=== PATIENT | female | born 1940 | race American Indian/Alaskan Native ===

== ENCOUNTER → 2016-05-25 | Outpatient (CLI) | payer MEDICARE, OTHER ==
--- NOTE | 2016-05-25 16:37 | US ---
EXAMINATION: Carotid US with parrish scale and duplex imaging. HISTORY: Peripheral vascular disease FINDINGS: Ultrasound examination of bilateral cervical carotid arteries was performed using parrish scale and dup niya imaging. There is moderate scattered atheromatous plaque within the carotid arteries bilaterall y by grayscale imaging. This is most prominent near the bulbs, right greater than left. Antegrade f low is noted within the vertebral arteries. These are the peak velocities in cm per second (systole), right and left respectively, by a comma: CCA (common carotid artery) - 89, 98 ICA (internal carotid artery) - 118, 61 ECA (External carotid artery) - 109, 82 ICA/CCA systolic ratio Right - 1.3 Left - 0.8 IMPRESSION: 1. Scattered atheromatous plaque within the carotid arteries bilaterally without significant velocit ies to suggest greater than 50% stenosis within the internal carotid arteries. 2. The greatest area stenosis appears be within the right bulb.
--- NOTE | 2016-05-25 17:04 | US ---
EXAMINATION: RAVINDER HISTORY: Peripheral vascular disease COMPARISON: None TECHNIQUE: Pressures obtained in the brachial arteries and within the posterior tibial and dorsalis pedis arteries bilaterally. FINDINGS/IMPRESSION: 1. The right RAVINDER is between 0.63 and 0.5. 2. The left RAVINDER is 0.89.
--- NOTE | 2016-05-26 09:45 | MR ---
EXAMINATION: MRI lumbar spine HISTORY: Pain COMPARISON: None TECHNIQUE: Multiplanar and multisequence images obtained through the lumbar spine without contrast. FINDINGS: The lumbar spinal alignment appears normal. The vertebral body heights and disc spaces bekah ear well-maintained. There is no abnormal bone marrow signal. The visualized retroperitoneal structu res appear normal. The distal spinal cord is normal and the conus terminates at L2. The SI joints ar e symmetric. T12-L1: Unremarkable. L1-L2: Unremarkable. L2-L3: Minimal diffuse disc bulge without significant spinal canal or neural foraminal stenosis. L3-L4: Tiny diffuse disc bulge with mild facet and ligamentum flavum hypertrophy without significant spinal canal stenosis. Mild bilateral foraminal stenosis. L4-L5: Small diffuse disc bulge mild facet and ligamentum flavum hypertrophy resulting in mild spina l canal stenosis. Mild bilateral neural foraminal stenosis. L5-S1: Small diffuse disc bulge with an annular tear without significant spinal canal stenosis. Mild bilateral neural foraminal stenosis. IMPRESSION: 1. Mild multilevel degenerative disc disease noted within the lumbar spine with individual details a georgina.
--- NOTE | 2016-06-11 22:30 | ECHO ---
The echocardiogram report can be seen in this patient's EMR in the Reports section. IVET
== END ==
LOC: MW.US 13:00
PROVIDERS: ATTEND Internal Medicine
DX: I73.9 Peripheral vascular disease, unspecified (principal); M54.9 Dorsalgia, unspecified; M51.36 Other intervertebral disc degeneration, lumbar region
CPT/HCPCS: 72148; 72148-26; 93306; 93880; 93880-26; 93922; 93922-26

== ENCOUNTER → 2016-06-03 | Outpatient (CLI) | payer MEDICARE, OTHER ==
[2016-06-03 15:16] LABS: CHLORIDE,CL 104 mmol/L (98-110); SODIUM,NA 143 mmol/L (136-146)
== END ==
LOC: MW.CHIM 13:48
PROVIDERS: ATTEND Internal Medicine
DX: I73.9 Peripheral vascular disease, unspecified (principal); I10 Essential (primary) hypertension; J43.9 Emphysema, unspecified; E78.00 Pure hypercholesterolemia, unspecified; G62.9 Polyneuropathy, unspecified; F17.210 Nicotine dependence, cigarettes, uncomplicated; Z71.6 Tobacco abuse counseling
CPT/HCPCS: 36415; 80053; 83880; 99214; 99407

== ENCOUNTER → 2016-06-22 | Outpatient (CLI) | payer MEDICARE, OTHER ==
[~2016-06-22] MED LIST: Iopamidol 755 Mg/ML 100 ML Bottle IVPUSH STA
--- NOTE | 2016-06-22 14:12 | CT ---
EXAMINATION: CT aorta with runoff HISTORY: Peripheral vascular disease COMPARISON: None TECHNIQUE: Axial CT images obtained from the diaphragm to the feet following the administration of 7 5 mL of Isovue-370 left antecubital fossa. Coronal and sagittal reconstructions obtained. FINDINGS: There is scarring within the lung bases. No pleural effusion. The liver is mildly heterogeneous of a tiny focus of hyperenhancement within the inferior right hepa tic lobe, measuring 3 mm. Given the size this likely represents an atypical hemangioma. The spleen, adrenal glands, and pancreas appear grossly normal. The kidneys enhance symmetrically without eviden ce of obstructive uropathy. The visualized large and small bowel are normal in caliber without evide nce of obstruction. The urinary bladder is mostly decompressed. No pelvic or retroperitoneal lymphad enopathy. Atheromatous disease is noted within the aorta. There is moderate stenosis of the celiac axis. The r ight hepatic artery originates from the SMA. Abdomen atheromatous disease is noted within the renal arteries without significant stenosis. 2 left renal arteries are noted. No significant ectasia of t he aorta. Atheromatous disease noted within the common iliac arteries bilaterally with mild underlying stenosi s. The internal iliac arteries are patent. The processes is noted within the external iliac arteries bilaterally with long segment areas of mild to moderate underlying stenosis. There is complete occlusion of the distal right superficial femoral artery with reconstitution of th e upper popliteal artery. There is multifocal areas of moderate to severe stenosis within the left s uperficial femoral artery with high-grade stenosis distally. There is also a moderate segment area o f moderate to severe stenosis within the upper left popliteal artery. There is a three-vessel runoff bilaterally. Dorsalis pedis arteries are visualized bilaterally. No suspicious osseous abnormalities. IMPRESSION: 1. Multifocal areas of advanced atheromatous disease. There is occlusion of the right femoral to esteban perficial femoral artery with reconstitution at the popliteal artery. 2. Multifocal areas of moderate to severe stenosis is noted within the left superficial femoral and popliteal arteries. Moderate stenosis is noted within the right popliteal artery. 3. There is a three-vessel runoff within the lower extremities bilaterally.
== END ==
LOC: MW.DI 09:35
PROVIDERS: ATTEND Internal Medicine
DX: I73.9 Peripheral vascular disease, unspecified (principal); I77.1 Stricture of artery
CPT/HCPCS: 75635; Q9967

== ENCOUNTER → 2016-06-23 | Outpatient (CLI) | payer MEDICARE, OTHER | LOC: MW.CHIM 08:00 | PROVIDERS: ATTEND Internal Medicine | DX: E78.5 Hyperlipidemia, unspecified (principal); I73.9 Peripheral vascular disease, unspecified; J44.9 Chronic obstructive pulmonary disease, unspecified; F17.211 Nicotine dependence, cigarettes, in remission; Z71.6 Tobacco abuse counseling | CPT/HCPCS: 99214; 99407 ==

== ENCOUNTER → 2016-08-12 | Outpatient (CLI) | payer MEDICARE, OTHER ==
--- NOTE | 2016-08-12 15:03 | XA ---
Exam Date: 08/12/16 Patient's Age: 76 HEIGHT: 62.0 in WEIGHT: 100.0 lbs INDICATIONS: Osteoporotic, Post Menopausal FRACTURES: Adult Fractures Only TREATMENTS: ASSESSMENT: The BMD measured at Femur Total Mean is 0.471 g/cm2 with a T-score of -4.3. This patient is considered osteoporotic according to World Health Organization ( WHO) criteria. Fracture risk is high. Pharmacological treatment, if not already prescribed, should be started. A followup bone density test is recommended in one year to monitor response to therapy. The BMD measured at Femur Troch Mean is 0.336 g/cm2 with a T-score of -4.5 is severely low. Fracture risk is high. Treatment, if not already being done, should be started. A followup DXA test is recommended in one year to monitor response to therapy. RESULTS: Site Region Age Classification T-Score BMD AP Spine L1-L4 78.1 Osteoporosis -3.3 0.787 g/cm2 Dual Femur Neck Mean 78.1 Osteoporosis -3.9 0.492 g/cm2 Dual Femur Troch Mean 78.1 N/A -4.5 0.336 g/cm2 Dual Femur Total Mean 78.1 Osteoporosis -4.3 0.471 g/cm2 World Health Organization - Criteria for post-menopausal, women: Normal: T-Score at or above -1 SD Osteopenia: T-Score between -1 and -2.5 SD Osteoporosis: T-Score at or below -2.5 SD RECOMMENDATION: Pharmacologic treatment recommendations & Initiate pharmacologic treatment: - In those with hip or vertebral (clinical or asymptomatic) fractures - In those with T -scores <-2.5 at the femoral neck, total hip, or lumbar spine by DXA - In postmenopausal women and men age 50 and older with low bone mass (T-score between -1.0 and -2.5, osteopenia) at the femoral neck, total hip, or lumbar spine by DXA and a 10-year hip fracture probability >3 % or a 10-year major osteoporosis-related fracture probability >20% based on the [place]-adapted WHO absolute fracture risk model (Fracture Risk Algorithm (FRAX); www. NOF.org and www.shef.ac.uk/FRAX) FOLLOW UP: People with diagnosed cases of osteoporosis or at high risk for fracture should have regular bone mineral density tests. For patients eligible for Medicare, routine testing is allowed once every 2 years. The testing frequency can be increased to 1 year for patients who have rapidly progressing disease, those who are reviewing or discontinuing medial therapy to restore bone mass, or have additional risk factors. People with diagnosed cases of osteoporosis or osteopenia should be regularly tested for bone mineral density. For patient eligible for Medicare, routine testing is allowed once every 2 years. The testing frequency can be increased to 1 year for patients who have rapidly progressing disease, or for those who are receiving medial therapy to restore bone mass. [facility] -- MARTINA Coates [phone] - FAX: [phone] IVET
== END ==
LOC: MW.DI 09:58
PROVIDERS: ATTEND Family Medicine
DX: M81.0 Age-related osteoporosis without current pathological fracture (principal)
CPT/HCPCS: 77080; 77080-26

== ENCOUNTER 2017-09-08 06:43 | Day surgery (SDC) | payer MEDICARE, OTHER ==
[2017-09-08] MEDS ORDERED: Lactated Ringers 1,000 ML IV SCH ×2 (07:00→08:30)
--- NOTE | 2017-09-08 07:12 | PCM.PREANE ---
Preanesthetic Assessment - Anesthesia/Transfusion/Family Hx Anesthesia History: Prior Anesthesia Without Reaction Other Type of Anesthesia Reaction Comment: "slow coming out of anesthesia" Family History of Anesthesia Reaction: No Transfusion History: Prior Transfusion Without Reaction Intubation History: Unknown - Review of Systems General: No Symptoms Pulmonary: No Symptoms Cardiovascular: No Symptoms Gastrointestinal: Other (h/o multiple colon polyps. change in bowel habits) Neurological: No Symptoms Other: Reports: None - Physical Assessment Height: 1.57 m Weight: 53.524 kg ASA Class: 3 Mental Status: Alert & Oriented x3 Airway Class: Mallampati = 2 Dentition: Reports: Dentures (upper) Thyro-Mental Finger Breadths: 3 Mouth Opening Finger Breadths: 2 ROM/Head Extension: Limited/Partial Lungs: Normal Respiratory Effort, Decreased Breath Sounds, Crackles Cardiovascular: Regular Rate, Regular Rhythm - Allergies Allergies/Adverse Reactions: Allergies Allergy/AdvReac Type Severity Reaction Status Date / Time alendronate sodium Allergy muscle Verified 09/06/17 09:12 cramps & leg edema codeine Allergy Hives/N&V Verified 09/06/17 09:12 Iodine and Iodide Containing Allergy Burning Verified 09/06/17 09:12 Produc theophylline anhydrous Allergy Shaking Verified 09/06/17 09:12 [From Robert-Dur] tussin chest congestion syrup Allergy Shaking Uncoded 09/06/17 09:12 - Blood Blood Available: No - Anesthesia Plan Pre-Op Medication Ordered: None - Acknowledgements Anesthesia Type Planned: MAC Pt an Appropriate Candidate for the Planned Anesthesia: Yes Alternatives and Risks of Anesthesia Discussed w Pt/Guardian: Yes Pt/Guardian Understands and Agrees with Anesthesia Plan: Yes PreAnesthesia Questionnaire HEENT History: Reports: Cataract, Epistaxis, Glaucoma Other HEENT History: top denture Cardiovascular History: Reports: High Cholesterol, Hypertension, Other (See Below) (PVD, s/p stents x2 in left leg three years ago (not working per patient) , also some stenosis of carotids with no need for surgery for now) Other Cardiovascular History: palpatations Respiratory History: Reports: COPD, Other (See Below) Other Respiratory History: emphysema, oxygen PRN, Gastrointestinal History: Reports: Colon Polyp, Diverticulosis, GERD, Hiatal Hernia, Other (See Below) Other Gastrointestinal History: hx lam esophagus, multipe colonoscopies with polypectomies -last one 3 years ago Genitourinary History: Reports: Pyelonephritis, UTI, Recurrent, Other (See Below ) Other Genitourinary History: hx kidney infections 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: 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: Musculoskeletal History: Reports: Arthritis, Back Pain, Chronic, Fracture, Osteoporosis Other Musculoskeletal History: hx fx jaw and ankles Neurological History: Reports: Neuropathy, Peripheral, Other (See Below) Other Neuro History: states, 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, has resolved Psychiatric History: Reports: Anxiety, Depression Endocrine/Metabolic History: Reports: Osteoporosis, Other (See Below) (history of thyroid problems- was on medications for a while, ok since) Hematologic History: Reports: Blood Transfusion(s) Immunologic History: Reports: None Oncologic (Cancer) History: Reports: Uterine Dermatologic History: Reports: None - Infectious Disease History Infectious Disease History: Reports: Chicken Pox - Past Surgical History Head Surgeries/Procedures: Reports: None HEENT Surgical History: Reports: Cataract Surgery, Tonsillectomy, Other (See Below) Other HEENT Surgeries/Procedures: hx repair of fx jaw GI Surgical History: Reports: Appendectomy, Colonoscopy (multiple), EGD Female Surgical History: Reports: Hysterectomy Other Female Surgeries/Procedures: hx hysterectomy due to cancer Neurological Surgical History: Reports: Other (See Below) Other Neurological Surgeries/Procedures: hx stents to left leg Oncologic Surgical History: - SUBSTANCE USE Smoking Status *Q: Former Smoker Recreational Drug Use History: No - HOME MEDS Home Medications: Home Meds Aspirin [[place] Aspirin] 81 mg PO DAILY 03/26/15 [History] Brimonidine Tartrate [Brimonidine Tartrate 0.2% Oph Soln] 1 drop EYERT BID [History] Cholecalciferol (Vitamin D3) [Vitamin D3] 400 units PO DAILY 09/06/17 [History] Colon Cleanser 1 tab PO ASDIRECTED 09/06/17 [History] Furosemide 20 mg PO ASDIRECTED PRN 09/06/17 [History] L.acidoph,Paracasei, B.lactis [Probiotic] 1 tab PO ASDIRECTED 09/06/17 [History] Levalbuterol HCl 1 inh NEB ASDIRECTED PRN 09/06/17 [History] - CURRENT (IN HOUSE) MEDS Current Meds: Current Medications Lactated Ringer's (Ringers, Lactated) 1,000 mls @ 125 mls/hr IV ASDIRECTED TERRIE
[2017-09-08] MEDS ORDERED: Propofol 200 MG/20 ML SDV ONE (07:30)
[2017-09-08] MEDS ORDERED: fentaNYL 100 MCG/2 ML SDV ONE (07:30)
[2017-09-08] MEDS ORDERED: Midazolam 1 MG/ML 2 ML SDV ONE (07:30)
--- NOTE | 2017-09-08 08:23 | PCM.OPNOTE ---
- General Post-Op/Procedure Note Date of Surgery/Procedure: 09/08/17 Operative Procedure(s): Colonoscopy with cold rectal polypectomy 2 Pre Op Diagnosis: Change in bowel habits. Decreased stool caliber. Personal history of colon polyps. Post-Op Diagnosis: Rectal polyps 2. Sigmoid diverticulosis. Anesthesia Technique: MAC (ASA III) Primary Surgeon: Ethan Bonner Condition: Good Free Text/Narrative:: DICTATION 064081 CPT CODE 40209
--- NOTE | 2017-09-08 08:34 | OR ---
SURGEON: Ethan Bonner M.D. DATE OF PROCEDURE: 09/08/2017 OPERATIONS PERFORMED: Colonoscopy with colorectal polypectomy. ANESTHESIA: MAC. [place] [employer] CLASSIFICATION: III. PREOPERATIVE DIAGNOSES: 1. Change in bowel habits. 2. Decreased caliber of stool. POSTOPERATIVE DIAGNOSES: 1. Rectal polyp x2. 2. Sigmoid diverticulosis. DESCRIPTION OF PROCEDURE: The patient was taken to the endoscopy room and positioned on the endoscopy table in the left lateral decubitus position. Time-out was called for appropriate identification of the patient and procedure. Monitored anesthesia care was provided. The colonoscope was inserted into the rectum and advanced with minimal difficulty to the cecum, where the colonoscope was retroflexed to visualize the ascending colon from below. The colonoscope was then straightened and slowly withdrawn. Cecum, ascending colon, hepatic flexure, transverse colon, splenic flexure, and descending colon showed no tumors, polyps, diverticula, or angiodysplastic changes. Sigmoid colon demonstrates moderate diverticular change. No stricture or spasm was noted. No polyps were encountered in the sigmoid colon, and there were no acute inflammatory changes. The colonoscope was then withdrawn to the rectum where two small polyps were identified. These were removed with the cold biopsy forceps and sent as one specimen. The colonoscope was retroflexed to visualize the anal orifice from the above. No tumors or polyps were seen, and there were no significant acute hemorrhoidal changes. The colonoscope was then straightened, the rectum aspirated, and the colonoscope removed. The patient tolerated the procedure well and was taken to the recovery room in stable condition. SHONNA / DOMITILA /[id number]
[2017-09-08 09:27] VITALS: BP 137/55
== END 2017-09-08 09:25 | disposition home or self-care (01) ==
LOC: MW.SDS 06:43
PROVIDERS: ATTEND Surgery
DX: R19.4 Change in bowel habit (principal); K62.1 Rectal polyp; K57.30 Diverticulosis of large intestine without perforation or abscess without bleeding; I11.0 Hypertensive heart disease with heart failure; I50.30 Unspecified diastolic (congestive) heart failure; E78.00 Pure hypercholesterolemia, unspecified; J43.9 Emphysema, unspecified; F41.9 Anxiety disorder, unspecified; F32.9 Major depressive disorder, single episode, unspecified; Z86.010 Personal history of colon polyps; Z87.891 Personal history of nicotine dependence; Z79.82 Long term (current) use of aspirin; Z79.899 Other long term (current) drug therapy; Z80.0 Family history of malignant neoplasm of digestive organs
CPT/HCPCS: 45380; J2250; J3010; J7120; J2704

== ENCOUNTER 2018-04-26 10:38 | Day surgery (SDC) | payer MEDICARE, OTHER ==
[~2018-04-26 10:38] MED LIST changes: -Iopamidol 755 Mg/ML 100 ML Bottle IVPUSH STA; +Lactated Ringers 1,000 ML IV SCH
--- NOTE | 2018-04-26 11:18 | PCM.PREANE ---
Preanesthetic Assessment - Anesthesia/Transfusion/Family Hx Anesthesia History: Prior Anesthesia Reaction Other Type of Anesthesia Reaction Comment: "slow coming out of anesthesia" Family History of Anesthesia Reaction: No Transfusion History: Prior Transfusion Without Reaction Intubation History: Unknown - Review of Systems General: No Symptoms Pulmonary: Shortness of Breath Cardiovascular: No Symptoms Gastrointestinal: Difficulty Swallowing Neurological: No Symptoms Other: Reports: None - Physical Assessment Height: 1.57 m Weight: 53.977 kg ASA Class: 3 Mental Status: Alert & Oriented x3 Airway Class: Mallampati = 2 Dentition: Reports: Dentures (upper) Thyro-Mental Finger Breadths: 3 Mouth Opening Finger Breadths: 2 ROM/Head Extension: Limited/Partial Lungs: Clear to Auscultation, Normal Respiratory Effort Cardiovascular: Regular Rate, Regular Rhythm - Allergies Allergies/Adverse Reactions: Allergies Allergy/AdvReac Type Severity Reaction Status Date / Time alendronate sodium Allergy muscle Verified 04/21/18 12:06 cramps & leg edema codeine Allergy Hives/N&V Verified 04/21/18 12:06 Iodine and Iodide Containing Allergy Burning Verified 04/21/18 12:06 Produc theophylline anhydrous Allergy Shaking Verified 04/21/18 12:06 [From Robert-Dur] tussin chest congestion syrup Allergy Shaking Uncoded 04/21/18 12:06 - Blood Blood Available: No - Anesthesia Plan Pre-Op Medication Ordered: None - Acknowledgements Anesthesia Type Planned: MAC Pt an Appropriate Candidate for the Planned Anesthesia: Yes Alternatives and Risks of Anesthesia Discussed w Pt/Guardian: Yes Pt/Guardian Understands and Agrees with Anesthesia Plan: Yes PreAnesthesia Questionnaire HEENT History: Reports: Cataract, Glaucoma, Other (See Below) Other HEENT History: uses reading glasses, has upper denture Cardiovascular History: Reports: Cardiomyopathy (NYHA class I diastolic CHF), High Cholesterol, Hypertension, Other (See Below) (PVD, s/p stents x2 in left leg three years ago (not working per patient), also some stenosis of carotids with no need for surgery for now) Other Cardiovascular History: palpatations Respiratory History: Reports: COPD, SOB (can't walk 2 blocks without SOB) Other Respiratory History: emphysema, oxygen PRN, Gastrointestinal History: Reports: Colon Polyp, GERD, Hiatal Hernia, Other (See Below) (dysphagia) Other Gastrointestinal History: hx of Barretts Esophagus and Esophageal stricture Genitourinary History: Reports: Urinary Incontinence Other Genitourinary History: hx kidney infections 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: Musculoskeletal History: Reports: Arthritis, Back Pain, Chronic, Fracture, Neck Pain, Chronic, Osteoporosis Other Musculoskeletal History: hx of fx ankle, wrist and jaw Neurological History: Reports: Neuropathy, Peripheral, Other (See Below) Other Neuro History: hx of "nerve stroke", 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, hx of motion sickness Psychiatric History: Reports: Anxiety Endocrine/Metabolic History: Reports: Osteoporosis Hematologic History: Reports: Blood Transfusion(s) Immunologic History: Reports: None Oncologic (Cancer) History: Reports: Uterine Dermatologic History: Reports: Eczema - Infectious Disease History Infectious Disease History: Reports: Chicken Pox - Past Surgical History Head Surgeries/Procedures: Reports: None HEENT Surgical History: Reports: Cataract Surgery, Tonsillectomy, Visual, Other (See Below) Other HEENT Surgeries/Procedures: hx of surgery for glaucoma right eye, hx of surgery to repair fx jaw (still has some facial numbness on left side) GI Surgical History: Reports: Appendectomy, Colonoscopy, EGD Female Surgical History: Reports: Hysterectomy Musculoskeletal Surgical History: Reports: None Oncologic Surgical History: Reports: Other (See Below) Other Oncologic Surgeries/Procedures: Hysterectomy - SUBSTANCE USE Smoking Status *Q: Former Smoker Tobacco Use Within Last Twelve Months: No Recreational Drug Use History: No - HOME MEDS Home Medications: Home Meds Aspirin [[place] Aspirin EC] 81 mg PO DAILY 03/26/15 [History] Brimonidine Tartrate [Brimonidine Tartrate 0.2% Ophth Soln] 1 drop EYERT BID [History] Cholecalciferol (Vitamin D3) [Vitamin D3] 800 units PO DAILY 09/06/17 [History] Colon Cleanser 1 tab PO ASDIRECTED 09/06/17 [History] Furosemide 20 mg PO ASDIRECTED PRN 09/06/17 [History] L.acidoph,Paracasei, B.lactis [Probiotic] 1 tab PO ASDIRECTED 09/06/17 [History] Levalbuterol HCl 1 inh NEB ASDIRECTED PRN 09/06/17 [History] Grape Seed Extract [Grape Seed] 1 cap PO DAILY 04/21/18 [History] Red Yeast Rice 600 mg PO DAILY 04/21/18 [History] - CURRENT (IN HOUSE) MEDS Current Meds: Current Medications Lactated Ringer's (Ringers, Lactated) 1,000 mls @ 125 mls/hr IV ASDIRECTED TERRIE
[2018-04-26] MEDS ORDERED: Propofol 200 MG/20 ML SDV ONE (11:51)
--- NOTE | 2018-04-26 12:10 | PCM.OPNOTE ---
- General Post-Op/Procedure Note Date of Surgery/Procedure: 04/26/18 Operative Procedure(s): Esophagogastroduodenoscopy with gastric and esophageal biopsies Pre Op Diagnosis: Progressive dysphagia. History of Chambers's esophagus and esophageal stricture. Post-Op Diagnosis: Mild to moderate gastritis. Moderate distal esophagitis with hiatal hernia. No evidence of stricture. Anesthesia Technique: MAC (ASA III) Primary Surgeon: Ethan Bonner Condition: Good Free Text/Narrative:: DICTATION 504231 CPT CODE 51812
[2018-04-26] MEDS ORDERED: Lactated Ringers 1,000 ML IV SCH (12:15)
--- NOTE | 2018-04-26 12:47 | PCM48HPAN ---
Post Anesthesia Note - EVALUATION WITHIN 48HRS OF ANESTHETIC Vital Signs in Normal Range: Yes Patient Participated in Evaluation: Yes Respiratory Function Stable: Yes Airway Patent: Yes Cardiovascular Function Stable: Yes Hydration Status Stable: Yes Pain Control Satisfactory: Yes Nausea and Vomiting Control Satisfactory: Yes Mental Status Recovered: Yes Resp Rate: 18 - COMMENTS/OBSERVATIONS Free Text/Narrative:: no anesthesia problems
[2018-04-26 12:59] VITALS: BP 176/73
--- NOTE | 2018-04-27 08:59 | OR ---
SURGEON: Ethan Bonner M.D. DATE OF PROCEDURE: 04/26/2018 OPERATIONS PERFORMED: Esophagogastroduodenoscopy with gastric and esophageal biopsies. ANESTHESIA: MAC. ASA CLASSIFICATION: III. PREOPERATIVE DIAGNOSES: 1. Progressive difficulty swallowing solid foods. 2. Previous history of esophageal stricture. 3. History of Chambers's esophagus. POSTOPERATIVE DIAGNOSES: 1. Moderate gastritis. 2. Esophagitis with hiatal hernia. DESCRIPTION OF PROCEDURE: The patient was taken to the endoscopy room and positioned on the endoscopy table in the supine position. Time-out was called for appropriate identification of the patient and procedure. Monitored anesthesia care was provided. The bite block was placed between the patient's teeth. The gastroscope was inserted through the bite block into the oropharynx and advanced without difficulty through the esophagus and stomach into the duodenum, where examination was now carried out in a retrograde fashion. The duodenum shows no acute inflammatory changes or ulcerations. The stomach does show mild-to- moderate gastritis. Antral biopsies were obtained to rule out Helicobacter pylori. The gastroscope was retroflexed to visualize the proximal stomach. No tumors or polyps were seen, and there were no lesions noted in the proximal stomach. The gastroscope was then straightened and slowly withdrawn. The greater and lesser curvatures were very well visualized. No tumors or polyps were seen, and there were no ulcerations noted in the proximal stomach. As the scope was withdrawn through the GE junction, the patient was noted to have a small hiatal hernia. There are also chronic inflammatory changes and separate biopsies of the distal esophagus were obtained. Remainder of the esophagus shows healthy appearing mucosa. I did not see any evidence of Zenker's diverticulum. The esophagus itself demonstrates pretty good contractility. I did not see any significant tertiary contractions. The vocal cords were very briefly visualized as the scope was withdrawn. Vocal cords were noted to move symmetrically, and no lesions were identified on the vocal cords. The gastroscope was then removed with the patient having tolerated the procedure well. She was now taken to recovery room in satisfactory condition. SHONNA RAMESH /[id number]
== END 2018-04-26 12:55 | disposition home or self-care (01) ==
LOC: MW.SDS 10:38
PROVIDERS: ATTEND Surgery
DX: K20.9 Esophagitis, unspecified (principal); K22.70 Barrett's esophagus without dysplasia; K29.50 Unspecified chronic gastritis without bleeding; K44.9 Diaphragmatic hernia without obstruction or gangrene; I11.0 Hypertensive heart disease with heart failure; I50.30 Unspecified diastolic (congestive) heart failure; J43.9 Emphysema, unspecified; E78.00 Pure hypercholesterolemia, unspecified; F41.9 Anxiety disorder, unspecified; K21.9 Gastro-esophageal reflux disease without esophagitis; Z87.891 Personal history of nicotine dependence; Z79.82 Long term (current) use of aspirin; Z79.899 Other long term (current) drug therapy; Z88.8 Allergy status to other drugs, medicaments and biological substances; Z88.5 Allergy status to narcotic agent
CPT/HCPCS: 43239; J2704; J7120

== ENCOUNTER 2019-10-27 12:14 | Observation (INO) | payer MEDICARE, OTHER ==
--- NOTE | 2019-10-27 12:24 | EDM.PDOC ---
ED HPI GENERAL MEDICAL PROBLEM - General Chief Complaint: General Stated Complaint: COVID TEST Time Seen by Provider: 10/27/19 12:17 Source of Information: Reports: Patient History Limitations: Reports: No Limitations - History of Present Illness INITIAL COMMENTS - FREE TEXT/NARRATIVE: 79-year-old female with history of COPD on oxygen presents with diffuse chest discomfort for 2 days. She states it feels heavy. Associated with dry cough, fever of 100.8, chills, malaise, throat irritation. She denies nausea, vomiting, abdominal pain. She has taken been cough drops and Robitussin with no relief. ROS: A 10-point review of systems, other than pertinent positives and negatives as stated per HPI, is otherwise negative Past medical history: No additional pertinent history Past Surgical history: No additional pertinent history Social history: No additional pertinent history Family history: No additional pertinent history PHYSICAL EXAM General: AOx4, GCS = 15, No distress HEENT: dry mucous membrane Neck: supple, no meningismus, no Kernig or Brudzinski Cardiac: S1S2 RRR Respiratory: deminished with mild exp wheezing Abdomen: Soft, nontender, no rebound or guarding, nondistended, no pulsatile mass. Back: nontender Musculoskeletal: NVI distally, no deformity Neuro: No focal deficits, CN 2 - 12 WNL. chronic pain Pain Score (Numeric/FACES): 5 - Related Data Allergies Allergy/AdvReac Type Severity Reaction Status Date / Time alendronate sodium Allergy muscle Verified 10/27/19 12:24 cramps & leg edema codeine Allergy Hives/N&V Verified 10/27/19 12:24 Iodine and Iodide Containing Allergy Burning Verified 10/27/19 12:24 Produc theophylline anhydrous Allergy Shaking Verified 10/27/19 12:24 [From [facility]] tussin chest congestion syrup Allergy Shaking Uncoded 10/27/19 12:24 Home Meds: Home Meds Aspirin [[place] Aspirin EC] 81 mg PO DAILY 03/26/15 [History] Brimonidine Tartrate [Brimonidine Tartrate 0.2% Ophth Soln] 1 drop EYERT BID 03/26/15 [History] Cholecalciferol (Vitamin D3) [Vitamin D3] 800 units PO DAILY 09/06/17 [History] Colon Cleanser 1 tab PO ASDIRECTED 09/06/17 [History] Furosemide 20 mg PO ASDIRECTED PRN 09/06/17 [History] L.acidoph,Paracasei, B.lactis [Probiotic] 1 tab PO ASDIRECTED 09/06/17 [History] Levalbuterol HCl 1 inh NEB ASDIRECTED PRN 09/06/17 [History] Grape Seed Extract [Grape Seed] 1 cap PO DAILY 04/21/18 [History] Red Yeast Rice 600 mg PO DAILY 04/21/18 [History] Past Medical History HEENT History: Reports: Cataract, Glaucoma, Other (See Below) Other HEENT History: uses reading glasses, has upper denture Cardiovascular History: Reports: Cardiomyopathy, High Cholesterol, Hypertension, Other (See Below) Other Cardiovascular History: palpatations Respiratory History: Reports: COPD, SOB Other Respiratory History: emphysema, oxygen PRN, Gastrointestinal History: Reports: Colon Polyp, GERD, Hiatal Hernia, Other (See Below) Other Gastrointestinal History: hx of Barretts Esophagus and Esophageal stricture Genitourinary History: Reports: Urinary Incontinence Other Genitourinary History: hx kidney infections 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: Musculoskeletal History: Reports: Arthritis, Back Pain, Chronic, Fracture, Neck Pain, Chronic, Osteoporosis Other Musculoskeletal History: hx of fx ankle, wrist and jaw Neurological History: Reports: Neuropathy, Peripheral, Other (See Below) Other Neuro History: hx of "nerve stroke", 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, hx of motion sickness Psychiatric History: Reports: Anxiety Endocrine/Metabolic History: Reports: Osteoporosis Hematologic History: Reports: Blood Transfusion(s) Immunologic History: Reports: None Oncologic (Cancer) History: Reports: Uterine Dermatologic History: Reports: Eczema - Infectious Disease History Infectious Disease History: Reports: Chicken Pox - Past Surgical History Head Surgeries/Procedures: Reports: None HEENT Surgical History: Reports: Cataract Surgery, Tonsillectomy, Visual, Other (See Below) Other HEENT Surgeries/Procedures: hx of surgery for glaucoma right eye, hx of surgery to repair fx jaw (still has some facial numbness on left side) GI Surgical History: Reports: Appendectomy, Colonoscopy, EGD Female Surgical History: Reports: Hysterectomy Other Female Surgeries/Procedures: hx hysterectomy due to cancer Neurological Surgical History: Reports: Other (See Below) Other Neurological Surgeries/Procedures: hx stents to left leg Musculoskeletal Surgical History: Reports: None Oncologic Surgical History: Reports: Other (See Below) Other Oncologic Surgeries/Procedures: Hysterectomy Social & Family History - Family History Family Medical History: Noncontributory ED ROS GENERAL - Review of Systems Review Of Systems: Comprehensive ROS is negative, except as noted in HPI. ED EXAM, GENERAL - Physical Exam Exam: See Below (see dictation) EKG INTERPRETATION EKG Interpretation Comments: 65 Bpm, NSR, normal QRS interval, no STEMI. EKG and rhythm strip interpreted by me at 1247 Course - Vital Signs Last Recorded V/S: Last Vital Signs Temp 96.8 F L 10/27/19 12:26 Pulse 73 10/27/19 12:26 Resp 20 10/27/19 12:26 BP 94/75 10/27/19 12:26 Pulse Ox 97 10/27/19 12:26 - Orders/Labs/Meds Orders: Active Orders 24 hr Category Date Time Status Admission Status [Patient Status] [ADT] Stat ADT 10/27/19 15:02 Ordered EKG Documentation Completion [RC] STAT Care 10/27/19 12:42 Active Azithromycin [Zithromax] 500 mg Med 10/27/19 15:15 Ordered Sodium Chloride 0.9% [Normal Saline (AdvBag)] 250 ml IV ONETIME cefTRIAXone [Rocephin in Dextrose,Iso-Osm 1 GM/50 ML] 1 Med 10/27/19 15:04 Ordered gm Premix Bag 1 bag IV ONETIME Medication Orders Azithromycin 500 mg/ Sodium (Chloride) 250 mls @ 250 mls/hr IV ONETIME TERRIE Labs: Laboratory Tests 10/27/19 10/27/19 10/27/19 Range/Units 12:55 12:55 12:55 WBC 8.03 (4.0-11.0) K/uL RBC 4.58 (4.30-5.90) M/uL Hgb 13.9 (12.0-16.0) g/dL Hct 45.0 (36.0-46.0) % MCV 98.3 H (80.0-98.0) fL MCH 30.3 (27.0-32.0) pg MCHC 30.9 L (31.0-37.0) g/dL RDW Std Deviation 48.8 (28.0-62.0) fl RDW Coeff of Leela 14 (11.0-15.0) % Plt Count 263 (150-400) K/uL MPV 9.60 (7.40-12.00) fL Neut % (Auto) 59.8 (48.0-80.0) % Lymph % (Auto) 26.2 (16.0-40.0) % Amador % (Auto) 12.5 (0.0-15.0) % Eos % (Auto) 1.1 (0.0-7.0) % Baso % (Auto) 0.4 (0.0-1.5) % Neut # (Auto) 4.8 (1.4-5.7) K/uL Lymph # (Auto) 2.1 (0.6-2.4) K/uL Amador # (Auto) 1.0 H (0.0-0.8) K/uL Eos # (Auto) 0.1 (0.0-0.7) K/uL Baso # (Auto) 0.0 (0.0-0.1) K/uL Nucleated RBC % 0.0 /100WBC Nucleated RBCs # 0 K/uL INR 0.96 Sodium 137 (136-145) mmol/L Potassium 4.1 (3.5-5.1) mmol/L Chloride 98 (98-107) mmol/L Carbon Dioxide 35.3 H (21.0-32.0) mmol/L BUN 8 (7.0-18.0) mg/dL Creatinine 0.7 (0.6-1.0) mg/dL Est Cr Clr Drug Dosing 49.85 mL/min Estimated GFR (MDRD) > 60.0 ml/min Glucose 108 H (74-106) mg/dL Calcium 8.2 L (8.5-10.1) mg/dL Total Bilirubin 1.1 H (0.2-1.0) mg/dL AST 19 (15-37) IU/L ALT 16 (14-63) IU/L Alkaline Phosphatase 112 (46-116) U/L Troponin I < 0.050 (0.000-0.056) ng/mL B-Natriuretic Peptide (<100) PG/ML Total Protein 7.7 (6.4-8.2) g/dL Albumin 3.5 (3.4-5.0) g/dL Globulin 4.2 H (2.6-4.0) g/dL Albumin/Globulin Ratio 0.8 L (0.9-1.6) COVID-19 (MARK) (NEGATIVE) 10/27/19 10/27/19 Range/Units 12:55 13:08 WBC (4.0-11.0) K/uL RBC (4.30-5.90) M/uL Hgb (12.0-16.0) g/dL Hct (36.0-46.0) % MCV (80.0-98.0) fL MCH (27.0-32.0) pg MCHC (31.0-37.0) g/dL RDW Std Deviation (28.0-62.0) fl RDW Coeff of Leela (11.0-15.0) % Plt Count (150-400) K/uL MPV (7.40-12.00) fL Neut % (Auto) (48.0-80.0) % Lymph % (Auto) (16.0-40.0) % Amador % (Auto) (0.0-15.0) % Eos % (Auto) (0.0-7.0) % Baso % (Auto) (0.0-1.5) % Neut # (Auto) (1.4-5.7) K/uL Lymph # (Auto) (0.6-2.4) K/uL Amador # (Auto) (0.0-0.8) K/uL Eos # (Auto) (0.0-0.7) K/uL Baso # (Auto) (0.0-0.1) K/uL Nucleated RBC % /100WBC Nucleated RBCs # K/uL INR Sodium (136-145) mmol/L Potassium (3.5-5.1) mmol/L Chloride (98-107) mmol/L Carbon Dioxide (21.0-32.0) mmol/L BUN (7.0-18.0) mg/dL Creatinine (0.6-1.0) mg/dL Est Cr Clr Drug Dosing mL/min Estimated GFR (MDRD) ml/min Glucose (74-106) mg/dL Calcium (8.5-10.1) mg/dL Total Bilirubin (0.2-1.0) mg/dL AST (15-37) IU/L ALT (14-63) IU/L Alkaline Phosphatase (46-116) U/L Troponin I (0.000-0.056) ng/mL B-Natriuretic Peptide 96 (<100) PG/ML Total Protein (6.4-8.2) g/dL Albumin (3.4-5.0) g/dL Globulin (2.6-4.0) g/dL Albumin/Globulin Ratio (0.9-1.6) COVID-19 (MARK) NEGATIVE (NEGATIVE) Meds: Medications Generic Name Dose Route Start Last Admin Trade Name Freq PRN Reason Stop Dose Admin Azithromycin 500 mg/ Sodium 250 mls @ 250 mls/hr 10/27/19 15:15 Chloride IV ONETIME TERRIE - Re-Assessments/Exams Free Text/Narrative Re-Assessment/Exam: 10/27/19 15:[address] Marcelo, who agrees to admit patient. The hospitalist's documentation supersedes all other documentation on this patient with regard to any conflicts or discrepancies from this point forward. Any emergency conditions have been treated to the ability of the ED prior to admission. Departure - Departure Time of Disposition: 15:05 Disposition: Refer to Observation Condition: Good Clinical Impression: Pneumonia, Atypical chest pain - Discharge Information *PRESCRIPTION DRUG MONITORING PROGRAM REVIEWED*: Not Applicable *COPY OF PRESCRIPTION DRUG MONITORING REPORT IN PATIENT TITO: Not Applicable Referrals: Kacey Larson MD [Primary Care Provider] - Forms: ED Department Discharge Sepsis Event Note (ED) - Focused Exam Vital Signs: Vital Signs Temp Pulse Resp BP Pulse Ox 10/27/19 12:26 96.8 F L 73 20 94/75 97 - My Orders Last 24 Hours: My Active Orders 10/27/19 12:42 EKG Documentation Completion [RC] STAT 10/27/19 15:02 Admission Status [Patient Status] [ADT] Stat 10/27/19 15:04 cefTRIAXone [Rocephin in Dextrose,Iso-Osm 1 GM/50 ML] 1 gm Premix Bag 1 bag IV ONETIME 10/27/19 15:15 Azithromycin [Zithromax] 500 mg Sodium Chloride 0.9% [Normal Saline (AdvBag)] 250 ml IV ONETIME - Assessment/Plan Last 24 Hours: My Active Orders 10/27/19 12:42 EKG Documentation Completion [RC] STAT 10/27/19 15:02 Admission Status [Patient Status] [ADT] Stat 10/27/19 15:04 cefTRIAXone [Rocephin in Dextrose,Iso-Osm 1 GM/50 ML] 1 gm Premix Bag 1 bag IV ONETIME 10/27/19 15:15 Azithromycin [Zithromax] 500 mg Sodium Chloride 0.9% [Normal Saline (AdvBag)] 250 ml IV ONETIME
[2019-10-27 13:25] LABS: BLOOD UREA NITROGEN,BUN 8 mg/dL (7.0-18.0); CARBON DIOXIDE,CO2 35.3 mmol/L (21.0-32.0); CHLORIDE,CL 98 mmol/L (98-107); GLUCOSE RANDOM 108 mg/dL (74-106); POTASSIUM,K 4.1 mmol/L (3.5-5.1); SODIUM,NA 137 mmol/L (136-145)
--- NOTE | 2019-10-27 13:26 | CR ---
HISTORY: Shortness of breath. COMPARISON: None. FINDINGS: Coarse interstitial opacities bilaterally. This could represent pulmonary edema. No evidence for pneumonia. Heart size within normal. Costophrenic angles sharp. Bony structures appear intact. Dictated by Mayra Beal MD @ Oct 27 2019 1:25PM Signed by Dr. Mayra Beal @ Oct 27 2019 1:25PM
--- NOTE | 2019-10-27 14:41 | CT ---
INDICATION: Dyspnea. TECHNIQUE: Volumetric helical scanning of the thorax was performed without IV contrast material. Coronal and sagittal reconstructions were obtained. COMPARISON: Today`s portable chest x-ray. FINDINGS: Centrilobular and panlobular emphysema is demonstrated. Subpleural reticulonodular opacity is demonstrated in the mid inferior upper lobes in the right middle lobe, most notable in the anteromedial left upper lobe. Consolidative opacity is present in this region and could be due to any combination of scarring and pneumonia. An underlying neoplasm cannot be excluded. Subpleural opacity elsewhere is due to scarring. Some of this has associated calcification. No airway abnormality is evident. No pleural effusion is demonstrated. No mediastinal or hilar lymphadenopathy is demonstrated. The heart size is normal. Calcified coronary arterial plaque is demonstrated. Images of the upper abdomen are unremarkable. IMPRESSION: 1. Bilateral upper lobe and right middle lobe subpleural reticulonodular opacity, most notable in the anteromedial left upper lobe. Scarring versus pneumonia. Underlying neoplasm not excluded. Comparison with any prior exam suggested. Otherwise, three-month follow up exam suggested. 2. Emphysema. Please note that all CT scans at this facility use dose modulation, iterative reconstruction, and/or weight-based dosing when appropriate to reduce radiation dose to as low as reasonably achievable. Dictated by Adalberto Foreman MD @ Oct 27 2019 2:33PM Signed by Dr. Adalberto Foreman @ Oct 27 2019 2:39PM
[2019-10-27] MEDS ORDERED: cefTRIAXone 1 GM in Premix Bag 1 BAG IV ONE (15:04)
[2019-10-27] MEDS ORDERED: Azithromycin 500 MG in Sodium Chloride 0.9% 250 ML IV SCH ×2 (15:15→17:00)
[2019-10-27] MEDS ORDERED: Ondansetron 4 MG Tab.DIS PO PRN (15:32)
[2019-10-27] MEDS ORDERED: Ondansetron 4 MG/2 ML SDV IVPUSH PRN (15:32)
[2019-10-27] MEDS ORDERED: Albuterol/Ipratropium 3.0-0.5 MG/3 ML Neb Soln NEB PRN (15:32)
--- NOTE | 2019-10-27 15:43 | PCM.HP.2 ---
H&P History of Present Illness - General Date of Service: 10/27/19 Admit Problem/Dx: Admission Diagnosis/Problem Admission Diagnosis/Problem Pneumonia Source of Information: Patient History Limitations: Reports: No Limitations - History of Present Illness Initial Comments - Free Text/Narative: 79-year-old female presents with SOB, cough, fever and intermittent chest pain for the past 2 days. She has a PMH of COPD on home oxygen (1.5 L at baseline), GERD, anxiety and uterine cancer. When she has chest pain it is located in the center of her chest, "pressure-like" in nature, radiates to her neck at times. The chest pain is unrelated to activity or rest and occurs only on occasion. She has nebulizer treatments at home but did not try taking any prior to coming to the hospital today. She denies any nausea, vomiting, diarrhea, abdominal pain, blood in stool or blood in urine. In the ER, CBC and CMP unremarkable. EKG within normal limits. CXR showed interstitial opacities b/l. CT chest showed b/l upper lobe and right middle lobe opacities representing scarring vs pneumonia. An underlying neoplasm could not be excluded. COVID 19 test negative. Troponin was negative. Patient given dose of IV Rocephin and azithromycin. Patient admitted for further evaluation and treatment. chronic pain Pain Score (Numeric/FACES): 5 - Related Data Allergies/Adverse Reactions: Allergies Allergy/AdvReac Type Severity Reaction Status Date / Time alendronate sodium Allergy muscle Verified 10/27/19 12:24 cramps & leg edema codeine Allergy Hives/N&V Verified 10/27/19 12:24 Iodine and Iodide Containing Allergy Burning Verified 10/27/19 12:24 Produc theophylline anhydrous Allergy Shaking Verified 10/27/19 12:24 [From [facility]] tussin chest congestion syrup Allergy Shaking Uncoded 10/27/19 12:24 Home Medications: Home Meds Aspirin [Seneca Aspirin EC] 81 mg PO DAILY 03/26/15 [History] Brimonidine Tartrate [Brimonidine Tartrate 0.2% Ophth Soln] 1 drop EYERT BID 03/26/15 [History] Cholecalciferol (Vitamin D3) [Vitamin D3] 800 units PO DAILY 09/06/17 [History] Colon Cleanser 1 tab PO ASDIRECTED 09/06/17 [History] Furosemide 20 mg PO ASDIRECTED PRN 09/06/17 [History] L.acidoph,Paracasei, B.lactis [Probiotic] 1 tab PO ASDIRECTED 09/06/17 [History] Levalbuterol HCl 1 inh NEB ASDIRECTED PRN 09/06/17 [History] Grape Seed Extract [Grape Seed] 1 cap PO DAILY 04/21/18 [History] Red Yeast Rice 600 mg PO DAILY 04/21/18 [History] Past Medical History HEENT History: Reports: Cataract, Glaucoma, Other (See Below) Other HEENT History: uses reading glasses, has upper denture Cardiovascular History: Reports: Cardiomyopathy, High Cholesterol, Hypertension, Other (See Below) Other Cardiovascular History: palpatations Respiratory History: Reports: COPD, SOB Other Respiratory History: emphysema, oxygen PRN, Gastrointestinal History: Reports: Colon Polyp, GERD, Hiatal Hernia, Other (See Below) Other Gastrointestinal History: hx of Barretts Esophagus and Esophageal stricture Genitourinary History: Reports: Urinary Incontinence Other Genitourinary History: hx kidney infections 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: Musculoskeletal History: Reports: Arthritis, Back Pain, Chronic, Fracture, Neck Pain, Chronic, Osteoporosis Other Musculoskeletal History: hx of fx ankle, wrist and jaw Neurological History: Reports: Neuropathy, Peripheral, Other (See Below) Other Neuro History: hx of "nerve stroke", 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, hx of motion sickness Psychiatric History: Reports: Anxiety Endocrine/Metabolic History: Reports: Osteoporosis Hematologic History: Reports: Blood Transfusion(s) Immunologic History: Reports: None Oncologic (Cancer) History: Reports: Uterine Dermatologic History: Reports: Eczema - Infectious Disease History Infectious Disease History: Reports: Chicken Pox - Past Surgical History Head Surgeries/Procedures: Reports: None HEENT Surgical History: Reports: Cataract Surgery, Tonsillectomy, Visual, Other (See Below) Other HEENT Surgeries/Procedures: hx of surgery for glaucoma right eye, hx of surgery to repair fx jaw (still has some facial numbness on left side) GI Surgical History: Reports: Appendectomy, Colonoscopy, EGD Female Surgical History: Reports: Hysterectomy Other Female Surgeries/Procedures: hx hysterectomy due to cancer Neurological Surgical History: Reports: Other (See Below) Other Neurological Surgeries/Procedures: hx stents to left leg Musculoskeletal Surgical History: Reports: None Oncologic Surgical History: Reports: Other (See Below) Other Oncologic Surgeries/Procedures: Hysterectomy Social & Family History - Family History Family Medical History: Noncontributory - Tobacco Use Smoking Status *Q: Former Smoker Used Tobacco, but Quit: Yes Month/Year Tobacco Last Used: 2017 - Caffeine Use Caffeine Use: Reports: Coffee, Soda, Tea - Recreational Drug Use Recreational Drug Use: No H&P Review of Systems - Review of Systems: Review Of Systems: Comprehensive ROS is negative, except as noted in HPI. Exam - Exam Exam: See Below - Vital Signs Vital Signs: Last Vital Signs Temp 36.0 C L 10/27/19 12:26 Pulse 64 10/27/19 15:25 Resp 20 10/27/19 12:26 BP 163/85 H 10/27/19 15:25 Pulse Ox 98 10/27/19 15:25 Weight: 52.163 kg - Exam General: Alert, Oriented, Cooperative HEENT: Conjunctiva Clear, EOMI, Mucosa Moist & Osborn, Posterior Pharynx Clear, Pupils Equal, Pupils Reactive Neck: Supple, Trachea Midline Lungs: Normal Respiratory Effort, Other (minimal wheezing b/l) Cardiovascular: Regular Rate, Regular Rhythm GI/Abdominal Exam: Normal Bowel Sounds Extremities: Normal Inspection, Pedal Edema (trace) Peripheral Pulses: 2+: Radial (L), Radial (R) Skin: Warm, Dry, Intact Neurological: Cranial Nerves Intact, Strength Equal Bilateral, Normal Speech, No rmal Tone Neuro Extensive - Mental Status: Alert, Oriented x3, Normal Mood/Affect Psychiatric: Alert, Normal Affect, Normal Mood - Patient Data Lab Results Last 24 hrs: Laboratory Results - last 24 hr 10/27/19 10/27/19 10/27/19 Range/Units 12:55 12:55 12:55 WBC 8.03 (4.0-11.0) K/uL RBC 4.58 (4.30-5.90) M/uL Hgb 13.9 (12.0-16.0) g/dL Hct 45.0 (36.0-46.0) % MCV 98.3 H (80.0-98.0) fL MCH 30.3 (27.0-32.0) pg MCHC 30.9 L (31.0-37.0) g/dL RDW Std Deviation 48.8 (28.0-62.0) fl RDW Coeff of Leela 14 (11.0-15.0) % Plt Count 263 (150-400) K/uL MPV 9.60 (7.40-12.00) fL Neut % (Auto) 59.8 (48.0-80.0) % Lymph % (Auto) 26.2 (16.0-40.0) % Luce % (Auto) 12.5 (0.0-15.0) % Eos % (Auto) 1.1 (0.0-7.0) % Baso % (Auto) 0.4 (0.0-1.5) % Neut # (Auto) 4.8 (1.4-5.7) K/uL Lymph # (Auto) 2.1 (0.6-2.4) K/uL Luce # (Auto) 1.0 H (0.0-0.8) K/uL Eos # (Auto) 0.1 (0.0-0.7) K/uL Baso # (Auto) 0.0 (0.0-0.1) K/uL Nucleated RBC % 0.0 /100WBC Nucleated RBCs # 0 K/uL INR 0.96 Sodium 137 (136-145) mmol/L Potassium 4.1 (3.5-5.1) mmol/L Chloride 98 (98-107) mmol/L Carbon Dioxide 35.3 H (21.0-32.0) mmol/L BUN 8 (7.0-18.0) mg/dL Creatinine 0.7 (0.6-1.0) mg/dL Est Cr Clr Drug Dosing 49.85 mL/min Estimated GFR (MDRD) > 60.0 ml/min Glucose 108 H (74-106) mg/dL Calcium 8.2 L (8.5-10.1) mg/dL Total Bilirubin 1.1 H (0.2-1.0) mg/dL AST 19 (15-37) IU/L ALT 16 (14-63) IU/L Alkaline Phosphatase 112 (46-116) U/L Troponin I < 0.050 (0.000-0.056) ng/mL B-Natriuretic Peptide (<100) PG/ML Total Protein 7.7 (6.4-8.2) g/dL Albumin 3.5 (3.4-5.0) g/dL Globulin 4.2 H (2.6-4.0) g/dL Albumin/Globulin Ratio 0.8 L (0.9-1.6) COVID-19 (MARK) (NEGATIVE) 10/27/19 10/27/19 Range/Units 12:55 13:08 WBC (4.0-11.0) K/uL RBC (4.30-5.90) M/uL Hgb (12.0-16.0) g/dL Hct (36.0-46.0) % MCV (80.0-98.0) fL MCH (27.0-32.0) pg MCHC (31.0-37.0) g/dL RDW Std Deviation (28.0-62.0) fl RDW Coeff of Leela (11.0-15.0) % Plt Count (150-400) K/uL MPV (7.40-12.00) fL Neut % (Auto) (48.0-80.0) % Lymph % (Auto) (16.0-40.0) % Luce % (Auto) (0.0-15.0) % Eos % (Auto) (0.0-7.0) % Baso % (Auto) (0.0-1.5) % Neut # (Auto) (1.4-5.7) K/uL Lymph # (Auto) (0.6-2.4) K/uL Luce # (Auto) (0.0-0.8) K/uL Eos # (Auto) (0.0-0.7) K/uL Baso # (Auto) (0.0-0.1) K/uL Nucleated RBC % /100WBC Nucleated RBCs # K/uL INR Sodium (136-145) mmol/L Potassium (3.5-5.1) mmol/L Chloride (98-107) mmol/L Carbon Dioxide (21.0-32.0) mmol/L BUN (7.0-18.0) mg/dL Creatinine (0.6-1.0) mg/dL Est Cr Clr Drug Dosing mL/min Estimated GFR (MDRD) ml/min Glucose (74-106) mg/dL Calcium (8.5-10.1) mg/dL Total Bilirubin (0.2-1.0) mg/dL AST (15-37) IU/L ALT (14-63) IU/L Alkaline Phosphatase (46-116) U/L Troponin I (0.000-0.056) ng/mL B-Natriuretic Peptide 96 (<100) PG/ML Total Protein (6.4-8.2) g/dL Albumin (3.4-5.0) g/dL Globulin (2.6-4.0) g/dL Albumin/Globulin Ratio (0.9-1.6) COVID-19 (MARK) NEGATIVE (NEGATIVE) Result Diagrams: 10/27/19 12:55 10/27/19 12:55 Sepsis Event Note - Evaluation Sepsis Screening Result: No Definite Risk - Focused Exam Vital Signs: Vital Signs Temp Pulse Resp BP Pulse Ox 10/27/19 15:25 64 163/85 H 98 10/27/19 14:55 63 127/49 L 98 10/27/19 14:23 63 134/50 L 99 10/27/19 12:26 36.0 C L 73 20 94/75 97 Date Exam was Performed: 10/27/19 Time Exam was Performed: 15:45 Problem List Initiated/Reviewed/Updated: Yes Orders Last 24hrs: Active Orders 24 hr Category Date Time Status Admission Status [Patient Status] [ADT] Stat ADT 10/27/19 15:02 Active Cardiac Monitoring [RC] . DIRECTED Care 10/27/19 15:35 Ordered EKG Documentation Completion [RC] STAT Care 10/27/19 12:42 Active Oxygen Therapy [RC] PRN Care 10/27/19 15:32 Ordered RT Aerosol Therapy [RC] ASDIRECTED Care 10/27/19 15:33 Ordered Up ad Mely [RC] ASDIRECTED Care 10/27/19 15:32 Ordered VTE/DVT Education [RC] PER UNIT ROUTINE Care 10/27/19 15:32 Ordered Vital Signs [RC] Q4H Care 10/27/19 15:32 Ordered Regular Diet [DIET] Diet 10/27/19 Lunch Ordered CBC WITH AUTO DIFF [HEME] AM Lab 10/28/19 05:11 Ordered COMPREHENSIVE METABOLIC PN,CMP [CHEM] AM Lab 10/28/19 05:11 Ordered CULTURE BLOOD [BC] Stat Lab 10/27/19 15:12 Received CULTURE BLOOD [BC] Stat Lab 10/27/19 15:22 Received CULTURE SPUTUM + SMEAR [RM] Routine Lab 10/27/19 15:37 Ordered TROPONIN I [CHEM] Q6H Lab 10/27/19 19:00 Ordered TROPONIN I [CHEM] Q6H Lab 10/28/19 01:00 Ordered UA RFX GONSALO AND CULT IF INDIC [URIN] Routine Lab 10/27/19 15:37 Ordered Acetaminophen [Tylenol] Med 10/27/19 15:32 Ordered 650 mg PO Q4H PRN Albuterol/Ipratropium [DuoNeb 3.0-0.5 MG/3 ML] Med 10/27/19 15:32 Ordered 3 ml NEB Q4HRRT PRN Azithromycin [Zithromax] 500 mg Med 10/28/19 09:00 Ordered Sodium Chloride 0.9% [Normal Saline (AdvBag)] 250 ml IV DAILY Azithromycin [Zithromax] 500 mg Med 10/27/19 15:15 Active Sodium Chloride 0.9% [Normal Saline (AdvBag)] 250 ml IV ONETIME Heparin Sodium Med 10/27/19 15:45 Ordered 5,000 units SUBCUT Q8H Ondansetron [Zofran ODT] Med 10/27/19 15:32 Ordered 4 mg PO Q4H PRN Ondansetron [Zofran] Med 10/27/19 15:32 Ordered 4 mg IVPUSH Q4H PRN cefTRIAXone [Rocephin in Dextrose,Iso-Osm 1 GM/50 ML] 1 Med 10/28/19 09:00 Ordered gm Premix Bag 1 bag IV Q24H Blood Culture x2 Reflex Set [OM.PC] Stat Oth 10/27/19 15:05 Ordered Saline Lock Insert [OM.PC] Stat Oth 10/27/19 15:32 Ordered Resuscitation Status Routine Resus Stat 10/27/19 15:32 Ordered Medication Orders Acetaminophen (Tylenol) 650 mg PO Q4H PRN PRN Reason: Pain (Mild 1-3)/fever Albuterol/Ipratropium (Duoneb 3.0-0.5 Mg/3 Ml) 3 ml NEB Q4HRRT PRN PRN Reason: Shortness Of Breath/wheezing Heparin Sodium (Porcine) (Heparin Sodium) 5,000 units SUBCUT Q8H TERRIE Azithromycin 500 mg/ Sodium (Chloride) 250 mls @ 250 mls/hr IV ONETIME TERRIE Ceftriaxone Sodium/Dextrose 1 (gm/ Premix) 50 mls @ 100 mls/hr IV Q24H TERRIE Azithromycin 500 mg/ Sodium (Chloride) 250 mls @ 250 mls/hr IV DAILY TERRIE Ondansetron HCl (Zofran Odt) 4 mg PO Q4H PRN PRN Reason: nausea, able to take PO Ondansetron HCl (Zofran) 4 mg IVPUSH Q4H PRN PRN Reason: Nausea Assessment/Plan Comment:: Assessment and Plan: 1. Community acquired pneumonia: - Admit to med/surg. Continue supplemental oxygen, IV ceftriaxone and jaki thromycin and DuoNebs q4h prn. Blood cultures pending. Sputum culture pending. COVID-19 test negative. Patient currently at her baseline home oxygen requirement of 1.5 L. - CXR showed b/l interstitial opacities. CT chest showed b/l upper lobe and RML opacities representing scarring vs pneumonia. An underlying neoplasm could not be ruled out. Repeat CT chest in 3 months recommended. 2. Chest pain, ACS r/o: - Patient on telemetry. EKG on admission showed no acute ischemic changes. Patient denies any chest pain currently. Will trend troponins q6h. 3. DVT prophylaxis: Heparin. 4. Past medical history of COPD, GERD, anxiety and uterine cancer: - Continue home medications.
[2019-10-27] MEDS: Heparin Sodium 5,000 Units/ML Vial SUBCUT SCH ×2 (16:42→23:37)
[2019-10-27] MEDS: Acetaminophen 325 MG Tab PO PRN (20:32)
[2019-10-27] MEDS ORDERED: BRIMONIDINE TARTRATE EYERT SCH (21:00)
[2019-10-28 05:40] LABS: BLOOD UREA NITROGEN,BUN 8 mg/dL (7.0-18.0); CARBON DIOXIDE,CO2 37.9 mmol/L (21.0-32.0); CHLORIDE,CL 102 mmol/L (98-107); GLUCOSE RANDOM 88 mg/dL (74-106); POTASSIUM,K 4.5 mmol/L (3.5-5.1); SODIUM,NA 142 mmol/L (136-145)
[2019-10-28] MEDS: Heparin Sodium 5,000 Units/ML Vial SUBCUT SCH (06:46)
[2019-10-28] MEDS ORDERED: Omeprazole 20 MG Cap.CR PO SCH (07:30)
[2019-10-28] MEDS: Acetaminophen 325 MG Tab PO PRN (07:34)
[2019-10-28 08:38] VITALS: BP 151/97; PULSE 71
[2019-10-28] MEDS ORDERED: [UNRECOGNIZED DRUG - OTHER] PO SCH (09:00)
[2019-10-28] MEDS ORDERED: cefTRIAXone 1 GM in Premix Bag 1 BAG IV SCH (09:00)
[2019-10-28] MEDS ORDERED: GRAPE SEED EXTRACT PO SCH ×2 (09:00→10:00)
[2019-10-28] MEDS ORDERED: RED YEAST RICE 600 MG PO SCH (09:00)
[2019-10-28] MEDS ORDERED: Carboxymethylcellulose Sodium 0.5% Ophth Soln 0.4 ML UD Box of 30 EYEBOTH SCH (09:00)
[2019-10-28] MEDS ORDERED: Aspirin 81 MG Tab.EC PO SCH (09:00)
[2019-10-28] MEDS ORDERED: CRANBERRY PO SCH (09:00)
[2019-10-28] MEDS ORDERED: ALOE VERA 25 MG PO SCH (09:00)
[2019-10-28] MEDS ORDERED: PROBIOTIC PO SCH (10:00)
[2019-10-28] MEDS ORDERED: Aloe Vera [Aloe Vera] 25 MG PO SCH (10:00)
[2019-10-28] MEDS ORDERED: CARBOXYMETHYLCELLULOSE SODIUM 0.5% EYEBOTH SCH (10:30)
--- NOTE | 2019-10-28 11:27 | PCM.DCSUM1 ---
Discharge Summary - Discharge Data Discharge Date: 10/28/19 Discharge Disposition: Home, Self-Care 01 Condition: Stable - Referral to Home Health Primary Care Physician: Kacey Larson MD - Patient Summary/Data Hospital Course: 79-year-old female who was admitted for community acquired pneumonia when she presented with SOB, cough, fever and intermittent chest pain for the past 2 days. She has a PMH of oxygen dependent COPD. In the ER, CBC and CMP unremarkable. EKG within normal limits. CT chest showed b/l upper lobe and right middle lobe opacities representing scarring vs pneumonia. An underlying neoplasm could not be excluded. COVID 19 test negative. Serial troponins were negative. Patient was treated with IV Rocephin and azithromycin. This morning patient reports chest pain has resolved and she is requesting discharge. She was discharged home with four more days of azithromycin and Cefdinir. She was informed of the recommendations of repeating a CAT scan in 3 months and is to follow up with Kacey Larson. - Discharge Plan *PRESCRIPTION DRUG MONITORING PROGRAM REVIEWED*: Not Applicable *COPY OF PRESCRIPTION DRUG MONITORING REPORT IN PATIENT TITO: Not Applicable Prescriptions/Med Rec: Azithromycin 500 mg PO DAILY #4 tablet Cefdinir 300 mg PO BID #8 capsule Home Medications: Home Meds Brimonidine Tartrate [Brimonidine Tartrate 0.2% Oph Soln] 1 drop EYERT BID 03/26/15 [History] Aloe Vera 25 mg PO DAILY 10/27/19 [History] Aspirin [Aspir 81] 91 mg PO DAILY 10/27/19 [History] Carboxymethylcellulose Sodium [Refresh Tears 0.5%] 0.5 oz EYEBOTH DAILY 10/27/19 [History] Cranberry Conc/Ascorbic Acid [Cranberry Plus Vitamin C Sftgl] 450 mg PO DAILY 10/27/19 [History] Grape Seed Extract 50 mg PO DAILY 10/27/19 [History] Red Yeast Rice 600 mg PO DAILY 10/27/19 [History] Azithromycin 500 mg PO DAILY #4 tablet 10/28/19 [Rx] Cefdinir 300 mg PO BID #8 capsule 10/28/19 [Rx] Cholecalciferol (Vitamin D3) [Vitamin D3] 10 mcg PO DAILY 10/28/19 [History] Lactobacillus 3/Fos/Pantethine [Probiotic & Acidophilus] 1 each PO DAILY 10/28/19 [History] Multivitamin [Gummi Bear Multivitamin] 1 each PO DAILY 10/28/19 [History] Patient Handouts: Community-Acquired Pneumonia, Adult, [id number] Referrals: Kacey Larson MD [Primary Care Provider] - - Discharge Summary/Plan Comment DC Time >30 min.: No - Patient Data Vitals - Most Recent: Last Vital Signs Temp 36.7 C 10/28/19 08:36 Pulse 71 10/28/19 08:36 Resp 18 10/28/19 08:36 BP 151/97 H 10/28/19 08:36 Pulse Ox 95 10/28/19 08:36 Weight - Most Recent: 99.79 kg I&O - Last 24 hours: Intake & Output 10/27/19 10/28/19 10/28/19 22:59 06:59 14:59 Intake Total 990 250 Output Total 700 Balance 290 250 Lab Results - Last 24 hrs: Laboratory Results - last 24 hr 10/27/19 10/27/19 10/27/19 Range/Units 12:55 12:55 12:55 WBC 8.03 (4.0-11.0) K/uL RBC 4.58 (4.30-5.90) M/uL Hgb 13.9 (12.0-16.0) g/dL Hct 45.0 (36.0-46.0) % MCV 98.3 H (80.0-98.0) fL MCH 30.3 (27.0-32.0) pg MCHC 30.9 L (31.0-37.0) g/dL RDW Std Deviation 48.8 (28.0-62.0) fl RDW Coeff of Leela 14 (11.0-15.0) % Plt Count 263 (150-400) K/uL MPV 9.60 (7.40-12.00) fL Neut % (Auto) 59.8 (48.0-80.0) % Lymph % (Auto) 26.2 (16.0-40.0) % Vance % (Auto) 12.5 (0.0-15.0) % Eos % (Auto) 1.1 (0.0-7.0) % Baso % (Auto) 0.4 (0.0-1.5) % Neut # (Auto) 4.8 (1.4-5.7) K/uL Lymph # (Auto) 2.1 (0.6-2.4) K/uL Vance # (Auto) 1.0 H (0.0-0.8) K/uL Eos # (Auto) 0.1 (0.0-0.7) K/uL Baso # (Auto) 0.0 (0.0-0.1) K/uL Nucleated RBC % 0.0 /100WBC Nucleated RBCs # 0 K/uL INR 0.96 Sodium 137 (136-145) mmol/L Potassium 4.1 (3.5-5.1) mmol/L Chloride 98 (98-107) mmol/L Carbon Dioxide 35.3 H (21.0-32.0) mmol/L BUN 8 (7.0-18.0) mg/dL Creatinine 0.7 (0.6-1.0) mg/dL Est Cr Clr Drug Dosing 49.85 mL/min Estimated GFR (MDRD) > 60.0 ml/min Glucose 108 H (74-106) mg/dL Calcium 8.2 L (8.5-10.1) mg/dL Total Bilirubin 1.1 H (0.2-1.0) mg/dL AST 19 (15-37) IU/L ALT 16 (14-63) IU/L Alkaline Phosphatase 112 (46-116) U/L Troponin I < 0.050 (0.000-0.056) ng/mL B-Natriuretic Peptide (<100) PG/ML Total Protein 7.7 (6.4-8.2) g/dL Albumin 3.5 (3.4-5.0) g/dL Globulin 4.2 H (2.6-4.0) g/dL Albumin/Globulin Ratio 0.8 L (0.9-1.6) Urine Color Urine Appearance Urine pH (5.0-8.0) Ur Specific [place] (1.001-1.035) Urine Protein (NEGATIVE) mg/dL Urine Glucose (UA) (NEGATIVE) mg/dL Urine Ketones (NEGATIVE) mg/dL Urine Occult Blood (NEGATIVE) Urine Nitrite (NEGATIVE) Urine Bilirubin (NEGATIVE) Urine Urobilinogen (<2.0) EU/dL Ur Leukocyte Esterase (NEGATIVE) COVID-19 (MARK) (NEGATIVE) 10/27/19 10/27/19 10/27/19 Range/Units 12:55 13:08 18:10 WBC (4.0-11.0) K/uL RBC (4.30-5.90) M/uL Hgb (12.0-16.0) g/dL Hct (36.0-46.0) % MCV (80.0-98.0) fL MCH (27.0-32.0) pg MCHC (31.0-37.0) g/dL RDW Std Deviation (28.0-62.0) fl RDW Coeff of Leela (11.0-15.0) % Plt Count (150-400) K/uL MPV (7.40-12.00) fL Neut % (Auto) (48.0-80.0) % Lymph % (Auto) (16.0-40.0) % Vance % (Auto) (0.0-15.0) % Eos % (Auto) (0.0-7.0) % Baso % (Auto) (0.0-1.5) % Neut # (Auto) (1.4-5.7) K/uL Lymph # (Auto) (0.6-2.4) K/uL Vance # (Auto) (0.0-0.8) K/uL Eos # (Auto) (0.0-0.7) K/uL Baso # (Auto) (0.0-0.1) K/uL Nucleated RBC % /100WBC Nucleated RBCs # K/uL INR Sodium (136-145) mmol/L Potassium (3.5-5.1) mmol/L Chloride (98-107) mmol/L Carbon Dioxide (21.0-32.0) mmol/L BUN (7.0-18.0) mg/dL Creatinine (0.6-1.0) mg/dL Est Cr Clr Drug Dosing mL/min Estimated GFR (MDRD) ml/min Glucose (74-106) mg/dL Calcium (8.5-10.1) mg/dL Total Bilirubin (0.2-1.0) mg/dL AST (15-37) IU/L ALT (14-63) IU/L Alkaline Phosphatase (46-116) U/L Troponin I (0.000-0.056) ng/mL B-Natriuretic Peptide 96 (<100) PG/ML Total Protein (6.4-8.2) g/dL Albumin (3.4-5.0) g/dL Globulin (2.6-4.0) g/dL Albumin/Globulin Ratio (0.9-1.6) Urine Color YELLOW Urine Appearance CLEAR Urine pH 6.0 (5.0-8.0) Ur Specific [place] 1.010 (1.001-1.035) Urine Protein NEGATIVE (NEGATIVE) mg/dL Urine Glucose (UA) NEGATIVE (NEGATIVE) mg/dL Urine Ketones NEGATIVE (NEGATIVE) mg/dL Urine Occult Blood NEGATIVE (NEGATIVE) Urine Nitrite NEGATIVE (NEGATIVE) Urine Bilirubin NEGATIVE (NEGATIVE) Urine Urobilinogen 0.2 (<2.0) EU/dL Ur Leukocyte Esterase NEGATIVE (NEGATIVE) COVID-19 (MARK) NEGATIVE (NEGATIVE) 10/27/19 10/28/19 10/28/19 Range/Units 19:01 01:00 05:05 WBC 6.74 (4.0-11.0) K/uL RBC 4.40 (4.30-5.90) M/uL Hgb 13.2 (12.0-16.0) g/dL Hct 43.8 (36.0-46.0) % MCV 99.5 H (80.0-98.0) fL MCH 30.0 (27.0-32.0) pg MCHC 30.1 L (31.0-37.0) g/dL RDW Std Deviation 50.2 (28.0-62.0) fl RDW Coeff of Leela 14 (11.0-15.0) % Plt Count 245 (150-400) K/uL MPV 9.50 (7.40-12.00) fL Neut % (Auto) 65.9 (48.0-80.0) % Lymph % (Auto) 19.4 (16.0-40.0) % Vance % (Auto) 12.2 (0.0-15.0) % Eos % (Auto) 2.2 (0.0-7.0) % Baso % (Auto) 0.3 (0.0-1.5) % Neut # (Auto) 4.4 (1.4-5.7) K/uL Lymph # (Auto) 1.3 (0.6-2.4) K/uL Vance # (Auto) 0.8 (0.0-0.8) K/uL Eos # (Auto) 0.2 (0.0-0.7) K/uL Baso # (Auto) 0.0 (0.0-0.1) K/uL Nucleated RBC % 0.0 /100WBC Nucleated RBCs # 0 K/uL INR Sodium (136-145) mmol/L Potassium (3.5-5.1) mmol/L Chloride (98-107) mmol/L Carbon Dioxide (21.0-32.0) mmol/L BUN (7.0-18.0) mg/dL Creatinine (0.6-1.0) mg/dL Est Cr Clr Drug Dosing mL/min Estimated GFR (MDRD) ml/min Glucose (74-106) mg/dL Calcium (8.5-10.1) mg/dL Total Bilirubin (0.2-1.0) mg/dL AST (15-37) IU/L ALT (14-63) IU/L Alkaline Phosphatase (46-116) U/L Troponin I < 0.050 < 0.050 (0.000-0.056) ng/mL B-Natriuretic Peptide (<100) PG/ML Total Protein (6.4-8.2) g/dL Albumin (3.4-5.0) g/dL Globulin (2.6-4.0) g/dL Albumin/Globulin Ratio (0.9-1.6) Urine Color Urine Appearance Urine pH (5.0-8.0) Ur Specific [place] (1.001-1.035) Urine Protein (NEGATIVE) mg/dL Urine Glucose (UA) (NEGATIVE) mg/dL Urine Ketones (NEGATIVE) mg/dL Urine Occult Blood (NEGATIVE) Urine Nitrite (NEGATIVE) Urine Bilirubin (NEGATIVE) Urine Urobilinogen (<2.0) EU/dL Ur Leukocyte Esterase (NEGATIVE) COVID-19 (MARK) (NEGATIVE) 10/28/19 Range/Units 05:05 WBC (4.0-11.0) K/uL RBC (4.30-5.90) M/uL Hgb (12.0-16.0) g/dL Hct (36.0-46.0) % MCV (80.0-98.0) fL MCH (27.0-32.0) pg MCHC (31.0-37.0) g/dL RDW Std Deviation (28.0-62.0) fl RDW Coeff of Leela (11.0-15.0) % Plt Count (150-400) K/uL MPV (7.40-12.00) fL Neut % (Auto) (48.0-80.0) % Lymph % (Auto) (16.0-40.0) % Vance % (Auto) (0.0-15.0) % Eos % (Auto) (0.0-7.0) % Baso % (Auto) (0.0-1.5) % Neut # (Auto) (1.4-5.7) K/uL Lymph # (Auto) (0.6-2.4) K/uL Vance # (Auto) (0.0-0.8) K/uL Eos # (Auto) (0.0-0.7) K/uL Baso # (Auto) (0.0-0.1) K/uL Nucleated RBC % /100WBC Nucleated RBCs # K/uL INR Sodium 142 (136-145) mmol/L Potassium 4.5 (3.5-5.1) mmol/L Chloride 102 (98-107) mmol/L Carbon Dioxide 37.9 H (21.0-32.0) mmol/L BUN 8 (7.0-18.0) mg/dL Creatinine 0.8 (0.6-1.0) mg/dL Est Cr Clr Drug Dosing 43.62 mL/min Estimated GFR (MDRD) > 60.0 ml/min Glucose 88 (74-106) mg/dL Calcium 8.5 (8.5-10.1) mg/dL Total Bilirubin 0.8 (0.2-1.0) mg/dL AST 19 (15-37) IU/L ALT 16 (14-63) IU/L Alkaline Phosphatase 105 (46-116) U/L Troponin I (0.000-0.056) ng/mL B-Natriuretic Peptide (<100) PG/ML Total Protein 7.1 (6.4-8.2) g/dL Albumin 3.1 L (3.4-5.0) g/dL Globulin 4.0 (2.6-4.0) g/dL Albumin/Globulin Ratio 0.8 L (0.9-1.6) Urine Color Urine Appearance Urine pH (5.0-8.0) Ur Specific [place] (1.001-1.035) Urine Protein (NEGATIVE) mg/dL Urine Glucose (UA) (NEGATIVE) mg/dL Urine Ketones (NEGATIVE) mg/dL Urine Occult Blood (NEGATIVE) Urine Nitrite (NEGATIVE) Urine Bilirubin (NEGATIVE) Urine Urobilinogen (<2.0) EU/dL Ur Leukocyte Esterase (NEGATIVE) COVID-19 (MARK) (NEGATIVE) Med Orders - Current: Current Medications Acetaminophen (Tylenol) 650 mg PO Q4H PRN PRN Reason: Pain (Mild 1-3)/fever Last Admin: 10/28/19 07:34 Dose: 650 mg Documented by: Albuterol/Ipratropium (Duoneb 3.0-0.5 Mg/3 Ml) 3 ml NEB Q4HRRT PRN PRN Reason: Shortness Of Breath/wheezing Heparin Sodium (Porcine) (Heparin Sodium) 5,000 units SUBCUT Q8H [facility] Last Admin: 10/28/19 06:46 Dose: Not Given Documented by: Ceftriaxone Sodium/Dextrose 1 (gm/ Premix) 50 mls @ 100 mls/hr IV Q24H [facility] Last Admin: 10/28/19 10:06 Dose: 100 mls/hr Documented by: Azithromycin 500 mg/ Sodium (Chloride) 250 mls @ 250 mls/hr IV Q24H [facility] Last Admin: 10/27/19 16:41 Dose: 250 mls/hr Documented by: Omeprazole (Omeprazole) 20 mg PO ACBREAKFAST [facility] Last Admin: 10/28/19 06:45 Dose: 20 mg Documented by: Ondansetron HCl (Zofran Odt) 4 mg PO Q4H PRN PRN Reason: nausea, able to take PO Ondansetron HCl (Zofran) 4 mg IVPUSH Q4H PRN PRN Reason: Nausea Brimonidine Tartrate [Brimonidine Tartrate 0.15% Ophth Soln] 1 each EYERT BID [facility] Cranberry Conc/Ascorbic Acid Sftgl 450 Mg 1 each PO DAILY [facility] Last Admin: 10/28/19 10:06 Dose: Not Given Documented by: Aspirin 81 Mg Tab.Ec 1 each PO DAILY [facility] Aloe Vera [Aloe Vera (] 25 Mg) 1 each PO DAILY [facility] Firtufy Probiotic 30 (Billion) 1 each PO DAILY [facility] Grape Seed Extract [ Grape Seed Extract] 50 Mg 1 each PO DAILY [facility] Red Yeast Rice 600 (Mg) 1 each PO DAILY [facility] Carboxymethylcellulo se Sodium 0.5% Ophth Soln 1 each EYEBOTH DAILY [facility] Discontinued Medications Artificial Tears (Refresh Plus 0.5%) 0.5 each EYEBOTH DAILY [facility] Aspirin (Halfprin) 81 mg PO DAILY [facility] Last Admin: 10/28/19 04:31 Dose: 81 mg Documented by: Azithromycin 500 mg/ Sodium (Chloride) 250 mls @ 250 mls/hr IV ONETIME [facility] Ceftriaxone Sodium/Dextrose 1 (gm/ Premix) 50 mls @ 100 mls/hr IV ONETIME ONE Stop: 10/27/19 15:33 Last Admin: 10/27/19 15:40 Dose: 100 mls/hr Documented by: Non-Formulary Medication (Grape Seed Extract [Grape Seed Extract]) 50 mg PO DAILY [facility] Non-Formulary Medication (Red Yeast Rice [Red Yeast Rice]) 600 mg PO DAILY [facility] Non-Formulary Medication (Aloe Vera [Aloe Vera]) 25 mg PO DAILY [facility]
[2019-10-29] MEDS ORDERED: Aspirin 81 MG Tab.EC PO SCH (09:00)
== END 2019-10-28 12:00 | disposition home or self-care (01) ==
LOC: MW.ED 12:14 → MW.MS 15:30
PROVIDERS: ADMIT Internal Medicine; ATTEND Internal Medicine
DX: J44.0 Chronic obstructive pulmonary disease with (acute) lower respiratory infection (principal); J18.9 Pneumonia, unspecified organism; E78.00 Pure hypercholesterolemia, unspecified; Z20.828 Contact with and (suspected) exposure to other viral communicable diseases; I10 Essential (primary) hypertension; K21.9 Gastro-esophageal reflux disease without esophagitis; F41.9 Anxiety disorder, unspecified; C55 Malignant neoplasm of uterus, part unspecified; Z87.891 Personal history of nicotine dependence; Z99.81 Dependence on supplemental oxygen; Z88.5 Allergy status to narcotic agent; Z88.8 Allergy status to other drugs, medicaments and biological substances; Z91.041 Radiographic dye allergy status; Z79.82 Long term (current) use of aspirin; Z79.899 Other long term (current) drug therapy
CPT/HCPCS: 36415; 71045; 71250; 80053; 81003; 83880; 84484; 85025; 85610; 87040; 93005; 96365; 96375; 96376; 99285; A9270; G0378; J0456; J0696; J7050; U0002; 99283

== ENCOUNTER 2020-07-17 19:42 | Emergency (ER) | payer MEDICARE, OTHER ==
--- NOTE | 2020-07-17 20:34 | EDM.PDOC ---
ED HPI GENERAL MEDICAL PROBLEM - General Chief Complaint: Laceration Stated Complaint: LACERATION UNSTOPPABLE BLEEDING Time Seen by Provider: 07/17/20 20:33 Source of Information: Reports: Patient History Limitations: Reports: No Limitations - History of Present Illness INITIAL COMMENTS - FREE TEXT/NARRATIVE: HISTORY AND PHYSICAL: History of present illness: The patient is an 80-year-old female who presents to the emergency room with complaints of a procedure site bleeding. The patient had a wart removed from her left pentecostalism area today by Dr. Levine. Post removal of the wart he cauterized the area and used a small bandage with tape for covering. Patient's had instructions to remove the dressing tomorrow and apply a thin layer of Vaseline on the area. Patient stated that she took a nap and when she woke up she had a large amount of blood in her bedding in her hair and on her clothing. She was concerned that the wound would continue to bleed. Patient denies any fever, chills, headache, change in vision, syncope or near syncope. Denies any chest pain, back pain, shortness of breath or cough. Denies any abdominal pain, nausea, vomiting, diarrhea, constipation or dysuria. Has not noted any blood in urine or stool. Patient has been eating and drinking appropriately. Review of systems: As per history of present illness and below otherwise all systems reviewed and negative. Past medical history: As per history of present illness and as reviewed below otherwise noncontributory. Surgical history: As per history of present illness and as reviewed below otherwise noncontributory. Social history: See social history for further information Family history: As per history of present illness and as reviewed below otherwise noncontributory. Physical exam: General: Well developed and well nourished. Alert and orientated x 3. Nontoxic in appearance and in no acute distress. Vital signs are stable and have been reviewed by me. Nursing notes were reviewed. HEENT: Atraumatic, normocephalic, pupils equal and reactive bilaterally, negative for conjunctival pallor or scleral icterus, mucous membranes moist, TMs normal bilaterally, throat clear, neck supple, nontender, trachea midline. No drooling or trismus noted. No meningeal signs. No hot potato voice noted. Lungs: Clear to auscultation bilaterally. No wheezes, rales, or rhonchi. Chest nontender. Normal work of breathing, no accessory muscles used. Heart: S1S2, regular rate and rhythm without overt murmur, gallops, or rubs. No JVD. No peripheral edema Abdomen: Soft, nondistended, nontender. Normoactive bowel sounds. Negative for masses or costovertebral tenderness. Skin: 2cm oval wound to left pentecostalism area. Small amount of active bleeding. Warm & dry. No lesions or rashes noted. Hematologic: No petechiae or purpra. Mucosa appropriate color and normal nail bed color and refill. Extremities: Atraumatic, moves all extremities per self without difficulty or deficits, negative for cords or calf pain. Neurovascular unremarkable. Neuro: Awake, alert, oriented. Cranial nerves II through XII unremarkable. Cerebellum unremarkable. Motor and sensory unremarkable throughout. Exam nonfoc al. Psychiatric: Mood and affect are appropriate. Normal thought process. Answering questions appropriately. Notes: *This patient was seen and evaluated during the 2019 SARS-CoV-2 novel coronavirus pandemic period. Community viral transmission is ongoing at time of this encounter and the emergency department is operating under pandemic response procedures. (2055) Remove the left pentecostalism dressing applied Vaseline gauze dressing with pressure. (2113) Removed pressure gas and applied a new dressing patient there is very little bleeding at this time. I will discharge the patient with the Vaseline gauze dressing and have her follow Dr. Levine's discharge instruction starting tomorrow. The patient is agreeable to this plan. I have talked with the patient about today's findings, in addition to providing specific details for plan of care. Reassessment at the time of disposition demonstrates that the patient is in no acute distress. The patient is stable for discharge, counseling was provided and we discussed in great detail signs and symptoms that would prompt them to return to the Emergency Department. Medication, follow up and supportive care measures were reviewed and discussed. Voices understanding and is agreeable to plan of care. Denies any further questions or concerns at this time. Impression: Bleeding wound Plan: 1. You were evaluated today on an emergent basis. Your left pentecostalism removal site bleeding was evaluated pressure dressing on with dressing was applied. The dressing tomorrow and follow your surgeon plan of care. If you have questions please refer to Dr. Levine. Please do not hesitate to return to the emergency room 2. You can alternate Tylenol and ibuprofen as needed for pain and fever management. 3. We encourage you to follow up with your primary care provider and/or recommended specialist in the next few days for re-evaluation and further care/management. 4. If your symptoms should worsen, new symptoms develop or any of the signs and symptoms we discussed should arise please return to the emergency room or call 911 (if needed). Definitive disposition and diagnosis as appropriate pending reevaluation and review of above. - Related Data Allergies Allergy/AdvReac Type Severity Reaction Status Date / Time alendronate sodium Allergy muscle Verified 07/17/20 20:42 cramps & leg edema codeine Allergy Hives/N&V Verified 07/17/20 20:42 Iodine and Iodide Containing Allergy Burning Verified 07/17/20 20:42 Produc theophylline anhydrous Allergy Shaking Verified 07/17/20 20:42 [From Robert-Dur] tussin chest congestion syrup Allergy Shaking Uncoded 07/17/20 20:42 Home Meds: Home Meds Brimonidine Tartrate [Brimonidine Tartrate 0.2% Ophth Soln] 1 drop EYERT BID 03/26/15 [History] Aloe Vera 25 mg PO DAILY 10/27/19 [History] Aspirin [Aspir 81] 91 mg PO DAILY 10/27/19 [History] Carboxymethylcellulose Sodium [Refresh Tears 0.5%] 0.5 oz EYEBOTH DAILY 10/27/19 [History] Cranberry Conc/Ascorbic Acid [Cranberry Plus Vitamin C Sftgl] 450 mg PO DAILY 10/27/19 [History] Grape Seed Extract 50 mg PO DAILY 10/27/19 [History] Red Yeast Rice 600 mg PO DAILY 10/27/19 [History] Azithromycin 500 mg PO DAILY #4 tablet 10/28/19 [Rx] Cefdinir 300 mg PO BID #8 capsule 10/28/19 [Rx] Cholecalciferol (Vitamin D3) [Vitamin D3] 10 mcg PO DAILY 10/28/19 [History] Lactobacillus 3/Fos/Pantethine [Probiotic & Acidophilus] 1 each PO DAILY 10/28/19 [History] Multivitamin [Gummi Bear Multivitamin] 1 each PO DAILY 10/28/19 [History] Past Medical History HEENT History: Reports: Cataract, Glaucoma, Other (See Below) Other HEENT History: uses reading glasses, has upper denture Cardiovascular History: Reports: Cardiomyopathy, High Cholesterol, Hypertension, Other (See Below) Other Cardiovascular History: palpatations Respiratory History: Reports: COPD, SOB Other Respiratory History: emphysema, oxygen PRN, Gastrointestinal History: Reports: Colon Polyp, GERD, Hiatal Hernia, Other (See Below) Other Gastrointestinal History: hx of Barretts Esophagus and Esophageal stricture Genitourinary History: Reports: Urinary Incontinence Other Genitourinary History: hx kidney infections PHARMACY SPECIALIST History: Reports: Musculoskeletal History: Reports: Arthritis, Back Pain, Chronic, Fracture, Neck Pain, Chronic, Osteoporosis Other Musculoskeletal History: hx of fx ankle, wrist and jaw Neurological History: Reports: Neuropathy, Peripheral, Other (See Below) Other Neuro History: hx of "nerve stroke", 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, hx of motion sickness Psychiatric History: Reports: Anxiety Endocrine/Metabolic History: Reports: Osteoporosis Hematologic History: Reports: Blood Transfusion(s) Immunologic History: Reports: None Oncologic (Cancer) History: Reports: Uterine Dermatologic History: Reports: Eczema - Infectious Disease History Infectious Disease History: Reports: Chicken Pox - Past Surgical History Head Surgeries/Procedures: Reports: None HEENT Surgical History: Reports: Cataract Surgery, Tonsillectomy, Visual, Other (See Below) Other HEENT Surgeries/Procedures: hx of surgery for glaucoma right eye, hx of surgery to repair fx jaw (still has some facial numbness on left side) GI Surgical History: Reports: Appendectomy, Colonoscopy, EGD Female Surgical History: Reports: Hysterectomy Other Female Surgeries/Procedures: hx hysterectomy due to cancer Neurological Surgical History: Reports: Other (See Below) Other Neurological Surgeries/Procedures: hx stents to left leg Musculoskeletal Surgical History: Reports: None Oncologic Surgical History: Reports: Other (See Below) Other Oncologic Surgeries/Procedures: Hysterectomy Social & Family History - Family History Family Medical History: No Pertinent Family History - Caffeine Use Caffeine Use: Reports: Coffee, Soda, Tea ED ROS GENERAL - Review of Systems Review Of Systems: Comprehensive ROS is negative, except as noted in HPI. ED EXAM, SKIN/RASH Exam: See Below (See dictation) Course - Vital Signs Last Recorded V/S: Last Vital Signs Temp 97.2 F 07/17/20 20:30 Pulse 82 07/17/20 20:30 Resp 18 07/17/20 20:30 BP 162/72 H 07/17/20 20:30 Pulse Ox 82 L 07/17/20 20:30 Departure - Departure Time of Disposition: 21:16 Disposition: Home, Self-Care 01 Condition: Good Clinical Impression: Bleeding from wound - Discharge Information *PRESCRIPTION DRUG MONITORING PROGRAM REVIEWED*: Not Applicable *COPY OF PRESCRIPTION DRUG MONITORING REPORT IN PATIENT TITO: Not Applicable Referrals: PCP,None [Primary Care Provider] - Forms: ED Department Discharge Additional Instructions: The following information is given to patients seen in the emergency department who are being discharged to home. This information is to outline your options for follow-up care. We provide all patients seen in our emergency department with a follow-up referral. The need for follow-up, as well as the timing and circumstances, are variable depending upon the specifics of your emergency department visit. If you don't have a primary care physician on staff, we will provide you with a referral. We always advise you to contact your personal physician following an emergency department visit to inform them of the circumstance of the visit and for follow-up with them and/or the need for any referrals to a consulting specialist. The emergency department will also refer you to a specialist when appropriate. This referral assures that you have the opportunity for follow-up care with a specialist. All of these measure are taken in an effort to provide you with optimal care, which includes your follow-up. Under all circumstances we always encourage you to contact your private physician who remains a resource for coordinating your care. When calling for follow-up care, please make the office aware that this follow-up is from your recent emergency room visit. If for any reason you are refused follow-up, please contact the [facility] Emergency Department at and asked to speak to the emergency department charge nurse. [facility] [address] [place] [id number] [id number] Plan: 1. You were evaluated today on an emergent basis. Your left pentecostalism removal site bleeding was evaluated pressure dressing on with dressing was applied. The dressing tomorrow and follow your surgeon plan of care. If you have questions please refer to Dr. Levine. Please do not hesitate to return to the emergency room 2. You can alternate Tylenol and ibuprofen as needed for pain and fever management. 3. We encourage you to follow up with your primary care provider and/or recommended specialist in the next few days for re-evaluation and further care/management. 4. If your symptoms should worsen, new symptoms develop or any of the signs and symptoms we discussed should arise please return to the emergency room or call 911 (if needed).
[2020-07-17 20:44] VITALS: BP 162/72; PULSE 82
== END 2020-07-17 21:33 | disposition home or self-care (01) ==
LOC: MW.ED 19:42
DX: L76.21 Postprocedural hemorrhage of skin and subcutaneous tissue following a dermatologic procedure (principal); I10 Essential (primary) hypertension; J44.9 Chronic obstructive pulmonary disease, unspecified; M19.90 Unspecified osteoarthritis, unspecified site; G62.9 Polyneuropathy, unspecified; Z88.8 Allergy status to other drugs, medicaments and biological substances; Z88.5 Allergy status to narcotic agent; Z91.048 Other nonmedicinal substance allergy status; Z79.82 Long term (current) use of aspirin; Z79.899 Other long term (current) drug therapy
CPT/HCPCS: 99283

== ENCOUNTER 2021-03-13 16:01 | Emergency (ER) | payer MEDICARE, OTHER ==
[2021-03-13] MEDS ORDERED: Sodium Chloride 0.9% 10 ML Syringe FLUSH PRN (17:39)
[2021-03-13] MEDS ORDERED: Sodium Chloride 0.9% 2.5 ML Syringe FLUSH PRN (17:39)
--- NOTE | 2021-03-13 17:47 | EDM.PDOC ---
ED HPI GENERAL MEDICAL PROBLEM - General Chief Complaint: Gastrointestinal Problem Stated Complaint: EXCESSIVE BLEEDING FROM RECTUM Time Seen by Provider: 03/13/21 17:23 Source of Information: Reports: Patient History Limitations: Reports: No Limitations - History of Present Illness INITIAL COMMENTS - FREE TEXT/NARRATIVE: HISTORY AND PHYSICAL: History of present illness: The patient is an 80-year-old female with a history of hypertension, diverticulosis, and wears home O2 presents to the emergency department with left lower quad pain and rectal bleeding that has been slowly increasing in intensity and frequency for the last 3 to 4 days. The patient states that she has had the left lower quad pain for approximately 2 years but that pain is normally dull in nature and this is sharper. The patient states that she will get this intense pain which requires her to defecate which she states is mostly blood. The patient states that she is never really had this type of pain previously. The patient states that she was started on Dicyclomine for a sinus infection and then started to have diarrhea. She states that she has mild nausea. Patient denies any fever, chills, change in vision, syncope or near syncope. Denies any chest pain, back pain, shortness of breath or cough. Denies any vomiting, constipation or dysuria. Patient has been drinking appropriately. The patient is fully vaccinated with a booster against COVID-19. Review of systems: As per history of present illness and below otherwise all systems reviewed and negative. Past medical history: As per history of present illness and as reviewed below otherwise noncontributory. Surgical history: As per history of present illness and as reviewed below otherwise noncontributory. Social history: See social history for further information Family history: As per history of present illness and as reviewed below otherwise noncontributory. Physical exam: General: Well developed and well nourished. Alert and orientated x 3. Nontoxic in appearance and in no acute distress. Vital signs are stable and have been reviewed by me. Nursing notes were reviewed. HEENT: Atraumatic, normocephalic, pupils equal and reactive bilaterally, negative for conjunctival pallor or scleral icterus, mucous membranes moist, TMs normal bilaterally, throat clear, neck supple, nontender, trachea midline. No drooling or trismus noted. No meningeal signs. No hot potato voice noted. Lungs: Clear to auscultation bilaterally. No wheezes, rales, or rhonchi. Chest nontender. Normal work of breathing, no accessory muscles used. Heart: S1S2, regular rate and rhythm without overt murmur, gallops, or rubs. No JVD. 2+ peripheral edema. Abdomen: Soft, nondistended, nontender. Normoactive bowel sounds. Negative for masses or costovertebral tenderness. Rectal: External hemorrhoids noted. No dried or active blood noted Skin: Intact, warm, dry. No lesions or rashes noted. Hematologic: No petechiae or purpra. Mucosa appropriate color and normal nail bed color and refill. Extremities: Atraumatic, moves all extremities per self without difficulty or deficits, negative for cords or calf pain. Neurovascular unremarkable. Neuro: Awake, alert, oriented. Cranial nerves II through XII unremarkable. Cerebellum unremarkable. Motor and sensory unremarkable throughout. Exam nonfocal. Psychiatric: Mood and affect are appropriate. Normal thought process. Answering questions appropriately. Notes: *This patient was seen and evaluated during the 2019 SARS-CoV-2 novel coronavirus pandemic period. Community viral transmission is ongoing at time of this encounter and the emergency department is operating under pandemic response procedures. As stated above the patient is an 80-year-old who presents to the emergency room with left lower quad pain that intensifies to where she has to defecate which she states is bloody in nature. The patient's rectal exam revealed a positive Hemoccult. The patient's blood pressure and pulse are stable 159/67 and 85 respectively. The patient denies any dizziness with standing or shortness of breath. I will do annual general GI bleed work-up. The patient is agreeable to this. The patient is allergic to IV contrast dye and is unsure as to her reaction. The fiberglass quality technician spoke with the radiologist who stated they should be able to see rectal bleed because with a noncontrast CT. The patient's hemoglobin is 13.8. The patient's hemoglobin on 10/28/2019 was 13.2. The patient's coags are normal. The patient's Covid test is negative. The chemistry is unremarkable except for carbon dioxide of 34.9 which is normal for the patient. I discussed the results with the patient and she indicated that indeed she had had some previous rectal bleeding that Dr. Bonner had work-up with a colonoscopy and she is unsure of the results but he and indicated that she had some bleeding tissue. The patient will follow up with her primary care who will then give her a referral to Dr. Iris escobar for possible further colonoscopy. The patient is agreeable with this discharge plan. I gave the patient detailed instructions on when she needs to return to the emergency department such as feelings of dizziness or weakness or increase in stools. The patient verbalized understanding. I have talked with the patient about today's findings, in addition to providing specific details for plan of care. Reassessment at the time of disposition demonstrates that the patient is in no acute distress. The patient is stable for discharge, counseling was provided and we discussed in great detail signs and symptoms that would prompt them to return to the Emergency Department. Medication, follow up and supportive care measures were reviewed and discussed. Voices understanding and is agreeable to plan of care. Denies any further questions or concerns at this time. Diagnostics: CBC, CMP, INR, PTT, EKG, UA, CT abdomen/pelvis, Covid 19 Impression: Rectal bleed Plan: 1. You were evaluated today on an emergent basis. Your concern regarding rectal bleeding was evaluated with a CT that showed IMPRESSION: 1. No acute abdominopelvic process identified. 2. Sigmoid diverticulosis. No diverticulitis. 3. Faint infiltrate left lung base incompletely visualized potentially postinfectious or postinflammatory. Your hemoglobin is 13.8. This indicates blood loss if this is low and yours is normal. Your hemoglobin in October 272019 was 13.2 which indicates your blood volume stable. Your COVID-19 was negative. As we discussed continue to monitor your stools and if you have become weaker or have dizziness please return to the emergency department. If you feel as if the stools are not decreasing or they are increasing please return to the emergency department. Otherwise follow-up with your primary care for a referral to Dr. Bonner for another colonoscopy. 2. You can alternate Tylenol and ibuprofen as needed for pain and fever management. 3. We encourage you to follow up with your primary care provider and/or recommended specialist in the next few days for re-evaluation and further care/management. 4. If your symptoms should worsen, new symptoms develop or any of the signs and symptoms we discussed should arise please return to the emergency room or call 911 (if needed). Definitive disposition and diagnosis as appropriate pending reevaluation and review of above. Left Abdomen Pain Score (Numeric/FACES): 10 - Related Data Allergies Allergy/AdvReac Type Severity Reaction Status Date / Time alendronate sodium Allergy muscle Verified 03/13/21 16:44 cramps & leg edema codeine Allergy Hives/N&V Verified 03/13/21 16:44 Iodine and Iodide Containing Allergy Burning Verified 03/13/21 16:44 Produc theophylline anhydrous Allergy Shaking Verified 03/13/21 16:44 [From [facility]] tussin chest congestion syrup Allergy Shaking Uncoded 03/13/21 16:44 Home Meds: Home Meds Brimonidine Tartrate [Brimonidine Tartrate 0.2% Ophth Soln] 1 drop EYERT BID 03/26/15 [History] Aloe Vera 25 mg PO DAILY 10/27/19 [History] Aspirin [Aspir 81] 91 mg PO DAILY 10/27/19 [History] Carboxymethylcellulose Sodium [Refresh Tears 0.5%] 0.5 oz EYEBOTH DAILY 10/27/19 [History] Cranberry Conc/Ascorbic Acid [Cranberry Plus Vitamin C Sftgl] 450 mg PO DAILY 10/27/19 [History] Grape Seed Extract 50 mg PO DAILY 10/27/19 [History] Red Yeast Rice 600 mg PO DAILY 10/27/19 [History] Azithromycin 500 mg PO DAILY #4 tablet 10/28/19 [Rx] Cefdinir 300 mg PO BID #8 capsule 10/28/19 [Rx] Cholecalciferol (Vitamin D3) [Vitamin D3] 10 mcg PO DAILY 10/28/19 [History] Lactobacillus 3/Fos/Pantethine [Probiotic & Acidophilus] 1 each PO DAILY 10/28/19 [History] Multivitamin [Gummi Bear Multivitamin] 1 each PO DAILY 10/28/19 [History] amLODIPine [Norvasc] 5 mg PO DAILY 03/13/21 [History] Past Medical History HEENT History: Reports: Cataract, Glaucoma, Other (See Below) Other HEENT History: uses reading glasses, has upper denture Cardiovascular History: Reports: Cardiomyopathy, High Cholesterol, Hypertension, Other (See Below) Other Cardiovascular History: palpatations Respiratory History: Reports: COPD, SOB Other Respiratory History: emphysema, oxygen PRN, Gastrointestinal History: Reports: Colon Polyp, GERD, Hiatal Hernia, Other (See Below) Other Gastrointestinal History: hx of Barretts Esophagus and Esophageal stricture Genitourinary History: Reports: Urinary Incontinence Other Genitourinary History: hx kidney infections FUND RAISER History: Reports: Musculoskeletal History: Reports: Arthritis, Back Pain, Chronic, Fracture, Neck Pain, Chronic, Osteoporosis Other Musculoskeletal History: hx of fx ankle, wrist and jaw Neurological History: Reports: Neuropathy, Peripheral, Other (See Below) Other Neuro History: hx of "nerve stroke", 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, hx of motion sickness Psychiatric History: Reports: Anxiety Endocrine/Metabolic History: Reports: Osteoporosis Hematologic History: Reports: Blood Transfusion(s) Immunologic History: Reports: None Oncologic (Cancer) History: Reports: Uterine Dermatologic History: Reports: Eczema - Infectious Disease History Infectious Disease History: Reports: Chicken Pox - Past Surgical History Head Surgeries/Procedures: Reports: None HEENT Surgical History: Reports: Cataract Surgery, Tonsillectomy, Visual, Other (See Below) Other HEENT Surgeries/Procedures: hx of surgery for glaucoma right eye, hx of surgery to repair fx jaw (still has some facial numbness on left side) Cardiovascular Surgical History: Reports: None GI Surgical History: Reports: Appendectomy, Colonoscopy, EGD Female Surgical History: Reports: Hysterectomy Other Female Surgeries/Procedures: hx hysterectomy due to cancer Neurological Surgical History: Reports: Other (See Below) Other Neurological Surgeries/Procedures: hx stents to left leg Musculoskeletal Surgical History: Reports: None Oncologic Surgical History: Reports: Other (See Below) Other Oncologic Surgeries/Procedures: Hysterectomy Social & Family History - Family History Family Medical History: No Pertinent Family History - Tobacco Use Tobacco Use Status *Q: Former Tobacco User Used Tobacco, but Quit: Yes Month/Year Tobacco Last Used: 4 - Caffeine Use Caffeine Use: Reports: None - Recreational Drug Use Recreational Drug Use: No ED ROS GENERAL - Review of Systems Review Of Systems: Comprehensive ROS is negative, except as noted in HPI. ED EXAM, GI/ABD - Physical Exam Exam: See Below (See dictation) Course - Vital Signs Last Recorded V/S: Last Vital Signs Temp 97.1 F 03/13/21 16:47 Pulse 86 03/13/21 19:56 Resp 17 03/13/21 19:56 BP 141/70 H 03/13/21 19:56 Pulse Ox 91 L 03/13/21 19:56 - Orders/Labs/Meds Orders: Active Orders 24 hr Category Date Time Status Saline Lock Insert [OM.PC] Stat Oth 03/13/21 17:39 Ordered Labs: Laboratory Tests 03/13/21 03/13/21 03/13/21 Range/Units 17:15 17:15 17:15 WBC 9.57 (4.0-11.0) K/uL RBC 4.50 (4.30-5.90) M/uL Hgb 13.8 (12.0-16.0) g/dL Hct 43.1 (36.0-46.0) % MCV 95.8 (80.0-98.0) fL MCH 30.7 (27.0-32.0) pg MCHC 32.0 (31.0-37.0) g/dL RDW Std Deviation 47.4 (28.0-62.0) fl RDW Coeff of Leela 14 (11.0-15.0) % Plt Count 474 H (150-400) K/uL MPV 9.70 (7.40-12.00) fL Neut % (Auto) 73.5 (48.0-80.0) % Lymph % (Auto) 16.5 (16.0-40.0) % [place] % (Auto) 7.0 (0.0-15.0) % Eos % (Auto) 2.6 (0.0-7.0) % Baso % (Auto) 0.4 (0.0-1.5) % Neut # (Auto) 7.0 H (1.4-5.7) K/uL Lymph # (Auto) 1.6 (0.6-2.4) K/uL [place] # (Auto) 0.7 (0.0-0.8) K/uL Eos # (Auto) 0.3 (0.0-0.7) K/uL Baso # (Auto) 0.0 (0.0-0.1) K/uL Nucleated RBC % 0.0 /100WBC Nucleated RBCs # 0 K/uL INR 1.00 APTT (18.6-31.3) SEC Sodium 140 (136-145) mmol/L Potassium 4.1 (3.5-5.1) mmol/L Chloride 99 (98-107) mmol/L Carbon Dioxide 34.9 H (21.0-32.0) mmol/L BUN 10 (7.0-18.0) mg/dL Creatinine 0.6 (0.6-1.0) mg/dL Est Cr Clr Drug Dosing 54.55 mL/min Estimated GFR (MDRD) > 60.0 ml/min Glucose 104 (74-106) mg/dL Calcium 9.5 (8.5-10.1) mg/dL Total Bilirubin 0.4 (0.2-1.0) mg/dL AST 19 (15-37) IU/L ALT 16 (14-63) IU/L Alkaline Phosphatase 91 (46-116) U/L Total Protein 7.7 (6.4-8.2) g/dL Albumin 3.5 (3.4-5.0) g/dL Globulin 4.2 H (2.6-4.0) g/dL Albumin/Globulin Ratio 0.8 L (0.9-1.6) SARS-CoV-2 RNA (MARK) (NEGATIVE) 03/13/21 03/13/21 Range/Units 17:15 18:01 WBC (4.0-11.0) K/uL RBC (4.30-5.90) M/uL Hgb (12.0-16.0) g/dL Hct (36.0-46.0) % MCV (80.0-98.0) fL MCH (27.0-32.0) pg MCHC (31.0-37.0) g/dL RDW Std Deviation (28.0-62.0) fl RDW Coeff of Leela (11.0-15.0) % Plt Count (150-400) K/uL MPV (7.40-12.00) fL Neut % (Auto) (48.0-80.0) % Lymph % (Auto) (16.0-40.0) % [place] % (Auto) (0.0-15.0) % Eos % (Auto) (0.0-7.0) % Baso % (Auto) (0.0-1.5) % Neut # (Auto) (1.4-5.7) K/uL Lymph # (Auto) (0.6-2.4) K/uL [place] # (Auto) (0.0-0.8) K/uL Eos # (Auto) (0.0-0.7) K/uL Baso # (Auto) (0.0-0.1) K/uL Nucleated RBC % /100WBC Nucleated RBCs # K/uL INR APTT 25.2 (18.6-31.3) SEC Sodium (136-145) mmol/L Potassium (3.5-5.1) mmol/L Chloride (98-107) mmol/L Carbon Dioxide (21.0-32.0) mmol/L BUN (7.0-18.0) mg/dL Creatinine (0.6-1.0) mg/dL Est Cr Clr Drug Dosing mL/min Estimated GFR (MDRD) ml/min Glucose (74-106) mg/dL Calcium (8.5-10.1) mg/dL Total Bilirubin (0.2-1.0) mg/dL AST (15-37) IU/L ALT (14-63) IU/L Alkaline Phosphatase (46-116) U/L Total Protein (6.4-8.2) g/dL Albumin (3.4-5.0) g/dL Globulin (2.6-4.0) g/dL Albumin/Globulin Ratio (0.9-1.6) SARS-CoV-2 RNA (MARK) NEGATIVE (NEGATIVE) Meds: Medications Discontinued Medications Generic Name Dose Route Start Last Admin Trade Name Freq PRN Reason Stop Dose Admin Sodium Chloride 10 ml 03/13/21 17:39 03/13/21 18:05 Sodium Chloride 0.9% 10 Ml Syringe FLUSH 10 ml ASDIRECTED PRN Administration Keep Vein Open Sodium Chloride 2.5 ml 03/13/21 17:39 03/13/21 18:05 Sodium Chloride 0.9% 2.5 Ml Syringe FLUSH 2.5 ml ASDIRECTED PRN Administration Keep Vein Open Departure - Departure Time of Disposition: 19:32 Disposition: Home, Self-Care 01 Condition: Good Clinical Impression: Rectal bleed - Discharge Information *PRESCRIPTION DRUG MONITORING PROGRAM REVIEWED*: Not Applicable *COPY OF PRESCRIPTION DRUG MONITORING REPORT IN PATIENT TITO: Not Applicable Instructions: Rectal Bleeding, [id number] Referrals: Mi Velazquez NP [Primary Care Provider] - Forms: ED Department Discharge Additional Instructions: The following information is given to patients seen in the emergency department who are being discharged to home. This information is to outline your options for follow-up care. We provide all patients seen in our emergency department with a follow-up referral. The need for follow-up, as well as the timing and circumstances, are variable depending upon the specifics of your emergency department visit. If you don't have a primary care physician on staff, we will provide you with a referral. We always advise you to contact your personal physician following an emergency department visit to inform them of the circumstance of the visit and for follow-up with them and/or the need for any referrals to a consulting specialist. The emergency department will also refer you to a specialist when appropriate. This referral assures that you have the opportunity for follow-up care with a specialist. All of these measure are taken in an effort to provide you with optimal care, which includes your follow-up. Under all circumstances we always encourage you to contact your private physician who remains a resource for coordinating your care. When calling for follow-up care, please make the office aware that this follow-up is from your recent emergency room visit. If for any reason you are refused follow-up, please contact the [facility] Emergency Department at and asked to speak to the emergency department charge nurse. [facility] [address] [place] [id number] [address] Plan: 1. You were evaluated today on an emergent basis. Your concern regarding rectal bleeding was evaluated with a CT that showed IMPRESSION: 1. No acute abdominopelvic process identified. 2. Sigmoid diverticulosis. No diverticulitis. 3. Faint infiltrate left lung base incompletely visualized potentially postinfectious or postinflammatory. Your hemoglobin is 13.8. This indicates blood loss if this is low and yours is normal. Your hemoglobin in October 272019 was 13.2 which indicates your blood volume stable. Your COVID-19 was negative. As we discussed continue to monitor your stools and if you have become weaker or have dizziness please return to the emergency department. If you feel as if the stools are not decreasing or they are increasing please return to the emergency department. Otherwise follow-up with your primary care for a referral to Dr. Bonner for another colonoscopy. 2. You can alternate Tylenol and ibuprofen as needed for pain and fever management. 3. We encourage you to follow up with your primary care provider and/or recommended specialist in the next few days for re-evaluation and further car e/management. 4. If your symptoms should worsen, new symptoms develop or any of the signs and symptoms we discussed should arise please return to the emergency room or call 911 (if needed). Sepsis Event Note (ED) - Evaluation Sepsis Screening Result: No Definite Risk - My Orders Last 24 Hours: My Active Orders 03/13/21 17:39 Saline Lock Insert [OM.PC] Stat - Assessment/Plan Last 24 Hours: My Active Orders 03/13/21 17:39 Saline Lock Insert [OM.PC] Stat
[2021-03-13 17:58] LABS: BLOOD UREA NITROGEN,BUN 10 mg/dL (7.0-18.0); CARBON DIOXIDE,CO2 34.9 mmol/L (21.0-32.0); CHLORIDE,CL 99 mmol/L (98-107); GLUCOSE RANDOM 104 mg/dL (74-106); POTASSIUM,K 4.1 mmol/L (3.5-5.1); SODIUM,NA 140 mmol/L (136-145)
--- NOTE | 2021-03-13 19:09 | CT ---
INDICATION: Left lower quadrant abdominal pain. Rectal bleeding. The patient may be allergic to contrast. TECHNIQUE: Noncontrast CT of the abdomen and pelvis. COMPARISON: Correlation is made with a CT angiogram of the abdomen and pelvis June 22, 2016 which included the lower extremities as a round off study. FINDINGS: The lung bases are hyperinflated with minor linear fibrosis or atelectasis. There is a small subpleural focus of increased attenuation at the left lung base image 1 series 201 potentially a small focus of infection or inflammation. This is incompletely visualized on this abdominal pelvic CT. The unenhanced liver is within normal limits. Focal fatty infiltration along the falciform ligament. No splenomegaly. The unenhanced pancreas, partly contracted gallbladder, adrenal glands, and kidneys are unremarkable. Vascular calcification within a normal caliber abdominal aorta. The urinary bladder is unremarkable. The uterus and ovaries may be surgically absent. Please correlate clinically. There is no evidence for small or large bowel obstruction or ileus. There is no evidence for appendicitis or diverticulitis. Few sigmoid diverticula. No ascites or lymphadenopathy. No free air. The stomach and duodenum although incompletely distended are within normal limits. The included skeleton is negative for acute fractures. IMPRESSION: 1. No acute abdominopelvic process identified. 2. Sigmoid diverticulosis. No diverticulitis. 3. Faint infiltrate left lung base incompletely visualized potentially postinfectious or postinflammatory. Please note that all CT scans at this facility use dose modulation, iterative reconstruction, and/or weight-based dosing when appropriate to reduce radiation dose to as low as reasonably achievable. Dictated by Daniel Zamudio MD @ 03/13/2021 7:08:53 PM (Electronically Signed)
--- NOTE | 2021-03-13 19:14 | PCM.EKG ---
#1 Interpretation EKG Interpretation Comments: EKG done 03/13/2021 at 5:55 PM shows a sinus rhythm heart rate 81 AL 103 short AL interval QT duration 468 axis 92 right axis deviation nonspecific T wave abnormality in V2 compared to 10/27/2019 no change impression no acute injury
[2021-03-13 19:57] VITALS: BP 141/70; PULSE 86
== END 2021-03-13 20:06 | disposition home or self-care (01) ==
LOC: MW.ED 16:01
DX: K62.5 Hemorrhage of anus and rectum (principal); E78.00 Pure hypercholesterolemia, unspecified; I10 Essential (primary) hypertension; J44.9 Chronic obstructive pulmonary disease, unspecified; K21.9 Gastro-esophageal reflux disease without esophagitis; Z87.891 Personal history of nicotine dependence; Z88.5 Allergy status to narcotic agent; Z91.041 Radiographic dye allergy status; Z88.8 Allergy status to other drugs, medicaments and biological substances; Z79.82 Long term (current) use of aspirin; Z79.899 Other long term (current) drug therapy; Z20.822 Contact with and (suspected) exposure to COVID-19
CPT/HCPCS: 36415; 74176; 80053; 85025; 85610; 85730; 93005; 99284; U0002

== ENCOUNTER 2021-04-17 12:54 | Inpatient (IN) | payer MEDICARE, OTHER ==
[2021-04-17] MEDS ORDERED: Albuterol/Ipratropium 3.0-0.5 MG/3 ML Neb Soln NEB ONE ×3 (13:12)
[2021-04-17 13:51] LABS: BLOOD UREA NITROGEN,BUN 12 mg/dL (7.0-18.0); CARBON DIOXIDE,CO2 42.1 mmol/L (21.0-32.0); CHLORIDE,CL 95 mmol/L (98-107); GLUCOSE RANDOM 163 mg/dL (74-106); POTASSIUM,K 3.6 mmol/L (3.5-5.1); SODIUM,NA 141 mmol/L (136-145)
[2021-04-17 14:11] LABS: CORONAVIRUS COVID-19 NAA NEGATIVE (NEGATIVE); INFLUENZA A NAA NEGATIVE (NEGATIVE); INFLUENZA B NAA NEGATIVE (NEGATIVE)
[2021-04-17] MEDS ORDERED: methylPREDNISolone Sodium Succinate 40 MG/1 ML SDV IVPUSH ONE (15:02)
[2021-04-17] MEDS ORDERED: Iopamidol 755 MG/ML 500 ML Multipack Bottle IVPUSH ONE (15:10)
[2021-04-17] MEDS ORDERED: cefTRIAXone 2 GM in Premix Bag 1 BAG IV ONE (15:34)
[2021-04-17] MEDS ORDERED: Azithromycin 500 MG in Sodium Chloride 0.9% 250 ML IV SCH (15:45)
[2021-04-17] MEDS ORDERED: Azithromycin 500 MG in Sodium Chloride 0.9% 250 ML IV STA (16:00)
[2021-04-17] MEDS ORDERED: diphenhydrAMINE 50 MG/ML SDV IVPUSH STA (16:01)
[2021-04-18] MEDS: Albuterol/Ipratropium 3.0-0.5 MG/3 ML Neb Soln NEB SCH ×5 (06:17→23:58)
[2021-04-18 07:54] LABS: BLOOD UREA NITROGEN,BUN 9 mg/dL (7.0-18.0); CARBON DIOXIDE,CO2 42.8 mmol/L (21.0-32.0); CHLORIDE,CL 98 mmol/L (98-107); GLUCOSE RANDOM 152 mg/dL (74-106); POTASSIUM,K 4.5 mmol/L (3.5-5.1); SODIUM,NA 142 mmol/L (136-145)
[2021-04-18] MEDS ORDERED: Brimonidine 0.2% Ophth Soln 5 ML Bottle EYERT SCH (09:00)
[2021-04-18] MEDS ORDERED: Carboxymethylcellulose Sodium 0.5% Ophth Soln 0.4 ML UD Box of 30 EYEBOTH SCH (09:00)
[2021-04-18] MEDS ORDERED: Acetaminophen 500 MG Tab PO PRN (09:06)
[2021-04-18] MEDS: Brimonidine 0.2% Ophth Soln 5 ML Bottle EYERT SCH ×2 (09:08→21:37)
[2021-04-18] MEDS: Carboxymethylcellulose Sodium 0.5% Ophth Soln 0.4 ML UD Box of 30 EYEBOTH SCH (09:08)
[2021-04-18] MEDS: amLODIPine 5 MG Tab PO SCH (09:32)
[2021-04-18] MEDS: Aspirin 81 MG Tab.EC PO SCH (09:59)
[2021-04-18] MEDS ORDERED: methylPREDNISolone Sodium Succinate 40 MG/1 ML SDV IVPUSH ONE (11:30)
[2021-04-18] MEDS: Multivitamin Tab PO SCH ×2 (12:21→12:28)
[2021-04-18] MEDS: Cholecalciferol (Vitamin D3) 10 MCG Tab PO SCH (12:21)
[2021-04-18] MEDS: ALOE VERA 25 MG PO SCH (12:22)
[2021-04-18] MEDS: ASCORBIC ACID PO SCH (12:22)
[2021-04-18] MEDS: RED YEAST RICE 600 MG PO SCH ×3 (12:22→21:36)
[2021-04-18] MEDS: CRANBERRY PO SCH (12:22)
[2021-04-18] MEDS ORDERED: GRAPE SEED EXTRACT PO SCH (12:30)
[2021-04-18] MEDS: cefTRIAXone 1 GM in Sodium Chloride 0.9% 50 ML IV SCH (14:18)
[2021-04-18] MEDS ORDERED: Azithromycin 500 MG Vial IV SCH (15:00)
[2021-04-18] MEDS ORDERED: Azithromycin 500 MG in Sodium Chloride 0.9% 250 ML IV SCH (15:00)
[2021-04-18] MEDS: Azithromycin 500 MG in Sodium Chloride 0.9% 250 ML IV SCH (15:31)
[2021-04-18] MEDS: GRAPE SEED EXTRACT PO SCH (21:36)
[2021-04-18] MEDS: Enoxaparin 40 MG/0.4 ML Syringe SUBCUT SCH ×2 (23:57)
[2021-04-19] MEDS: Albuterol/Ipratropium 3.0-0.5 MG/3 ML Neb Soln NEB SCH ×4 (06:51→23:12)
[2021-04-19] MEDS: amLODIPine 5 MG Tab PO SCH (08:35)
[2021-04-19] MEDS: Aspirin 81 MG Tab.EC PO SCH (08:35)
[2021-04-19] MEDS: Cholecalciferol (Vitamin D3) 10 MCG Tab PO SCH (08:36)
[2021-04-19] MEDS: RED YEAST RICE 600 MG PO SCH ×2 (08:37→20:28)
[2021-04-19] MEDS: GRAPE SEED EXTRACT PO SCH ×2 (08:37→20:29)
[2021-04-19] MEDS: CRANBERRY PO SCH (08:38)
[2021-04-19] MEDS: ASCORBIC ACID PO SCH (08:38)
[2021-04-19] MEDS: ALOE VERA 25 MG PO SCH (08:38)
[2021-04-19] MEDS: Brimonidine 0.2% Ophth Soln 5 ML Bottle EYERT SCH ×2 (08:40→20:23)
[2021-04-19] MEDS: Carboxymethylcellulose Sodium 0.5% Ophth Soln 0.4 ML UD Box of 30 EYEBOTH SCH (08:42)
[2021-04-19] MEDS: BIOTIN 2500 MCG PO SCH (12:02)
[2021-04-19] MEDS: methylPREDNISolone Sodium Succinate 40 MG/1 ML SDV IVPUSH SCH (14:45)
[2021-04-19] MEDS: cefTRIAXone 1 GM in Sodium Chloride 0.9% 50 ML IV SCH (14:47)
[2021-04-19] MEDS: Azithromycin 500 MG in Sodium Chloride 0.9% 250 ML IV SCH (15:29)
[2021-04-19] MEDS: Enoxaparin 40 MG/0.4 ML Syringe SUBCUT SCH (23:12)
[2021-04-20] MEDS: Albuterol/Ipratropium 3.0-0.5 MG/3 ML Neb Soln NEB SCH ×2 (05:54→14:18)
[2021-04-20] MEDS: Aspirin 81 MG Tab.EC PO SCH (08:52)
[2021-04-20] MEDS: amLODIPine 5 MG Tab PO SCH (08:53)
[2021-04-20] MEDS: Brimonidine 0.2% Ophth Soln 5 ML Bottle EYERT SCH (08:53)
[2021-04-20] MEDS: methylPREDNISolone Sodium Succinate 40 MG/1 ML SDV IVPUSH SCH (08:53)
[2021-04-20] MEDS: Cholecalciferol (Vitamin D3) 10 MCG Tab PO SCH (08:53)
[2021-04-20] MEDS: RED YEAST RICE 600 MG PO SCH (08:54)
[2021-04-20] MEDS: Carboxymethylcellulose Sodium 0.5% Ophth Soln 0.4 ML UD Box of 30 EYEBOTH SCH (08:54)
[2021-04-20] MEDS: CRANBERRY PO SCH (08:55)
[2021-04-20] MEDS: GRAPE SEED EXTRACT PO SCH (08:55)
[2021-04-20] MEDS: ALOE VERA 25 MG PO SCH (08:55)
[2021-04-20] MEDS: ASCORBIC ACID PO SCH (08:55)
[2021-04-20] MEDS: BIOTIN 2500 MCG PO SCH (08:56)
[2021-04-20 12:01] VITALS: BP 139/49; PULSE 77
[2021-04-20] MEDS: cefTRIAXone 1 GM in Sodium Chloride 0.9% 50 ML IV SCH (16:08)
[2021-04-20] MEDS: Azithromycin 500 MG in Sodium Chloride 0.9% 250 ML IV SCH (16:08)
== END 2021-04-20 16:15 | disposition home or self-care (01) | DRG 190 ==
LOC: MW.ED 12:54 → MW.MS 16:25
PROVIDERS: ADMIT Internal Medicine; ATTEND Internal Medicine
DX: J43.9 Emphysema, unspecified (principal); R09.02 Hypoxemia; H40.9 Unspecified glaucoma; J18.9 Pneumonia, unspecified organism; Z20.822 Contact with and (suspected) exposure to COVID-19; E78.00 Pure hypercholesterolemia, unspecified; I10 Essential (primary) hypertension; G62.9 Polyneuropathy, unspecified; M54.9 Dorsalgia, unspecified; M54.2 Cervicalgia; G89.29 Other chronic pain; M19.90 Unspecified osteoarthritis, unspecified site; F41.9 Anxiety disorder, unspecified; M81.0 Age-related osteoporosis without current pathological fracture; K21.9 Gastro-esophageal reflux disease without esophagitis; K44.9 Diaphragmatic hernia without obstruction or gangrene; R32 Unspecified urinary incontinence; Z88.2 Allergy status to sulfonamides; Z88.8 Allergy status to other drugs, medicaments and biological substances; Z79.82 Long term (current) use of aspirin; Z88.1 Allergy status to other antibiotic agents; Z98.49 Cataract extraction status, unspecified eye; Z79.899 Other long term (current) drug therapy; Z87.891 Personal history of nicotine dependence; Z90.710 Acquired absence of both cervix and uterus; Z90.49 Acquired absence of other specified parts of digestive tract; Z85.42 Personal history of malignant neoplasm of other parts of uterus; Z88.5 Allergy status to narcotic agent
CPT/HCPCS: 0240U; 36415; 71045; 71275; 80048; 80053; 83605; 83880; 84484; 85025; 85610; 87040; 93005; 94640; A9270-GY; J0456; J0696; J1650; J2920; J7050; J7620-GY; Q9967

== ENCOUNTER 2021-04-24 12:18 | Inpatient (IN) | payer MEDICARE, OTHER ==
[2021-04-24] MEDS ORDERED: Sodium Chloride 0.9% 2.5 ML Syringe FLUSH PRN (12:23)
[2021-04-24] MEDS ORDERED: Sodium Chloride 0.9% 10 ML Syringe FLUSH PRN (12:23)
[2021-04-24] MEDS ORDERED: Albuterol/Ipratropium 3.0-0.5 MG/3 ML Neb Soln NEB ONE (12:56)
[2021-04-24] MEDS ORDERED: methylPREDNISolone Sodium Succinate 125 MG/2 ML SDV IVPUSH ONE (12:57)
[2021-04-24 13:24] LABS: BLOOD UREA NITROGEN,BUN 6 mg/dL (7.0-18.0); CARBON DIOXIDE,CO2 39.1 mmol/L (21.0-32.0); CHLORIDE,CL 98 mmol/L (98-107); GLUCOSE RANDOM 95 mg/dL (74-106); POTASSIUM,K 4.1 mmol/L (3.5-5.1); SODIUM,NA 139 mmol/L (136-145)
[2021-04-24 14:40] LABS: CORONAVIRUS COVID-19 NAA NEGATIVE (NEGATIVE); INFLUENZA A NAA NEGATIVE (NEGATIVE); INFLUENZA B NAA NEGATIVE (NEGATIVE)
[2021-04-24] MEDS: Acetaminophen 500 MG Tab PO ONE ×2 (15:06→15:10)
[2021-04-24] MEDS ORDERED: Acetaminophen 500 MG Tab PO ONE (15:10)
[2021-04-24] MEDS ORDERED: Iopamidol 755 MG/ML 500 ML Multipack Bottle IVPUSH STA (16:41)
[2021-04-24] MEDS ORDERED: Ampicillin/Sulbactam Na 3 GM in Sodium Chloride 0.9% 100 ML IV ONE ×2 (17:21→18:00)
[2021-04-24] MEDS ORDERED: Furosemide 40 MG/4 ML VIAL IVPUSH ONE (18:13)
[2021-04-24] MEDS ORDERED: Acetaminophen 325 MG Tab PO PRN (19:28)
[2021-04-24] MEDS ORDERED: Ondansetron 4 MG/2 ML SDV IVPUSH PRN (19:28)
[2021-04-24] MEDS ORDERED: Albuterol/Ipratropium 3.0-0.5 MG/3 ML Neb Soln NEB PRN (19:28)
[2021-04-24] MEDS: methylPREDNISolone Sodium Succinate 40 MG/1 ML SDV IVPUSH SCH (20:49)
[2021-04-24] MEDS: Albuterol/Ipratropium 4 GM Inhalation Spray INH SCH (20:51)
[2021-04-24] MEDS ORDERED: Enoxaparin 40 MG/0.4 ML Syringe SUBCUT SCH (21:00)
[2021-04-25] MEDS: Albuterol/Ipratropium 4 GM Inhalation Spray INH SCH ×6 (00:22→22:14)
[2021-04-25] MEDS: methylPREDNISolone Sodium Succinate 40 MG/1 ML SDV IVPUSH SCH ×2 (08:36→22:33)
[2021-04-25] MEDS: Furosemide 40 MG/4 ML VIAL IVPUSH SCH (08:38)
[2021-04-25 08:41] LABS: BLOOD UREA NITROGEN,BUN 10 mg/dL (7.0-18.0); CARBON DIOXIDE,CO2 36.9 mmol/L (21.0-32.0); CHLORIDE,CL 100 mmol/L (98-107); GLUCOSE RANDOM 138 mg/dL (74-106); POTASSIUM,K 4.1 mmol/L (3.5-5.1); SODIUM,NA 139 mmol/L (136-145)
[2021-04-25] MEDS ORDERED: Carboxymethylcellulose Sodium 0.5% Ophth Soln 0.4 ML UD Box of 30 EYEBOTH PRN (15:21)
[2021-04-25] MEDS ORDERED: REFRESH EYE EYEBOTH PRN (20:25)
[2021-04-25] MEDS ORDERED: Brimonidine 0.2% Ophth **OWN MED EYERT SCH (21:00)
[2021-04-25] MEDS ORDERED: Enoxaparin 40 MG/0.4 ML Syringe SUBCUT SCH (21:00)
[2021-04-25] MEDS ORDERED: Brimonidine 0.2% Ophth Soln 5 ML Bottle EYERT SCH (21:00)
[2021-04-25] MEDS: REFRESH EYE EYEBOTH PRN (22:15)
[2021-04-25] MEDS: Brimonidine 0.2% Ophth **OWN MED EYERT SCH (22:16)
[2021-04-25] MEDS: RED YEAST RICE 600 MG PO SCH (22:18)
[2021-04-25] MEDS: GRAPE SEED EXTRACT PO SCH (22:20)
[2021-04-26] MEDS: Cefdinir 300 MG Cap PO SCH ×2 (01:05→08:42)
[2021-04-26] MEDS: Azithromycin 250 MG Tab PO SCH ×2 (01:05→08:43)
[2021-04-26] MEDS: Albuterol/Ipratropium 4 GM Inhalation Spray INH SCH ×4 (01:05→12:00)
[2021-04-26] MEDS: Brimonidine 0.2% Ophth **OWN MED EYERT SCH (08:33)
[2021-04-26] MEDS: REFRESH EYE EYEBOTH PRN (08:34)
[2021-04-26] MEDS: GRAPE SEED EXTRACT PO SCH (08:35)
[2021-04-26] MEDS: RED YEAST RICE 600 MG PO SCH (08:36)
[2021-04-26] MEDS: methylPREDNISolone Sodium Succinate 40 MG/1 ML SDV IVPUSH SCH (08:41)
[2021-04-26] MEDS: Furosemide 40 MG/4 ML VIAL IVPUSH SCH (08:42)
[2021-04-26 08:54] LABS: BLOOD UREA NITROGEN,BUN 10 mg/dL (7.0-18.0); CHLORIDE,CL 98 mmol/L (98-107); GLUCOSE RANDOM 137 mg/dL (74-106); SODIUM,NA 140 mmol/L (136-145)
[2021-04-26] MEDS ORDERED: Aspirin 81 MG Tab.EC PO SCH (09:00)
[2021-04-26] MEDS ORDERED: [UNRECOGNIZED DRUG - MIXTURE] PO SCH (09:00)
[2021-04-26] MEDS ORDERED: COD LIVER OIL PO SCH (09:00)
[2021-04-26] MEDS ORDERED: ALOE VERA 25 MG PO SCH (09:00)
[2021-04-26 12:47] VITALS: BP 113/34; PULSE 73
== END 2021-04-26 13:50 | disposition home or self-care (01) | DRG 190 ==
LOC: MW.ED 12:18 → MW.MS 17:30 → UNDOADMIN 17:30 → MW.MS 18:46 → UNDODISIN 04-26 13:50
PROVIDERS: ADMIT Student in an Organized Health Care Education/Training Program; ATTEND Student in an Organized Health Care Education/Training Program
DX: J43.8 Other emphysema (principal); R09.02 Hypoxemia; J18.9 Pneumonia, unspecified organism; E78.00 Pure hypercholesterolemia, unspecified; I11.0 Hypertensive heart disease with heart failure; I42.9 Cardiomyopathy, unspecified; I50.9 Heart failure, unspecified; K21.9 Gastro-esophageal reflux disease without esophagitis; R32 Unspecified urinary incontinence; M19.90 Unspecified osteoarthritis, unspecified site; M54.9 Dorsalgia, unspecified; Z20.822 Contact with and (suspected) exposure to COVID-19; G89.29 Other chronic pain; M54.2 Cervicalgia; M81.0 Age-related osteoporosis without current pathological fracture; G62.9 Polyneuropathy, unspecified; F41.9 Anxiety disorder, unspecified; H40.9 Unspecified glaucoma; H54.7 Unspecified visual loss; K44.9 Diaphragmatic hernia without obstruction or gangrene; Z90.710 Acquired absence of both cervix and uterus; Z88.5 Allergy status to narcotic agent; Z91.041 Radiographic dye allergy status; Z88.8 Allergy status to other drugs, medicaments and biological substances; Z79.82 Long term (current) use of aspirin; Z79.52 Long term (current) use of systemic steroids; Z79.899 Other long term (current) drug therapy; Z98.49 Cataract extraction status, unspecified eye; Z90.49 Acquired absence of other specified parts of digestive tract
CPT/HCPCS: 0240U; 36415; 71045; 71275; 74177; 80048; 80053; 83735; 84100; 84484; 85025; 94640; 97161; 97530; 96365; 96375; 99285-25; A9270-GY; J0295; J1650; J1940; J2920; J2930; J7620-GY; Q9967

== ENCOUNTER 2021-12-03 13:55 | Inpatient (IN) | payer MEDICARE, OTHER ==
[2021-12-03] MEDS ORDERED: Sodium Chloride 0.9% 2.5 ML Syringe FLUSH PRN (14:05)
[2021-12-03] MEDS ORDERED: Albuterol/Ipratropium 3.0-0.5 MG/3 ML Neb Soln NEB ONE (14:05)
[2021-12-03] MEDS ORDERED: Sodium Chloride 0.9% 10 ML Syringe FLUSH PRN (14:05)
[2021-12-03 14:34] LABS: CARBON DIOXIDE,CO2 41.4 mmol/L (21.0-32.0); POTASSIUM,K 3.6 mmol/L (3.5-5.1)
[2021-12-03] MEDS ORDERED: Furosemide 40 MG/4 ML VIAL IVPUSH STA (14:56)
[2021-12-03] MEDS ORDERED: methylPREDNISolone Sodium Succinate 40 MG/1 ML SDV IVPUSH STA (14:57)
[2021-12-03] MEDS ORDERED: Magnesium Sulfate/Water 2 GM in Premix Bag 1 BAG IV STA (16:44)
[2021-12-03] MEDS ORDERED: Azithromycin 500 MG in Sodium Chloride 0.9% 250 ML IV SCH (17:00)
[2021-12-03] MEDS ORDERED: cefTRIAXone 1 GM in Sodium Chloride 0.9% 50 ML IV SCH (17:00)
[2021-12-03] MEDS ORDERED: HERBAL DRUGS PO PRN (17:01)
[2021-12-03] MEDS ORDERED: CARBOXYMETHYLCELLULOSE SODIUM EYEBOTH PRN (17:01)
[2021-12-03] MEDS: Albuterol/Ipratropium 3.0-0.5 MG/3 ML Neb Soln NEB SCH (20:24)
[2021-12-03] MEDS: Enoxaparin 40 MG/0.4 ML Syringe SUBCUT SCH (20:24)
[2021-12-03] MEDS ORDERED: BRIMONIDINE TARTRATE EYERT SCH (21:00)
[2021-12-03] MEDS ORDERED: GRAPE SEED EXTRACT PO SCH (21:00)
[2021-12-04] MEDS: cefTRIAXone 1 GM in Sodium Chloride 0.9% 50 ML IV SCH ×2 (00:56→21:27)
[2021-12-04] MEDS: Azithromycin 500 MG in Sodium Chloride 0.9% 250 ML IV SCH ×2 (00:57→22:23)
[2021-12-04] MEDS: Albuterol/Ipratropium 3.0-0.5 MG/3 ML Neb Soln NEB SCH ×5 (00:58→19:14)
[2021-12-04 06:35] LABS: CARBON DIOXIDE,CO2 43.5 mmol/L (21.0-32.0); POTASSIUM,K 3.3 mmol/L (3.5-5.1)
[2021-12-04] MEDS ORDERED: Carboxymethylcellulose Sodium 0.5% Ophth Soln 0.4 ML UD Box of 30 EYEBOTH PRN (07:15)
[2021-12-04] MEDS ORDERED: NS with KCl 40mEq 1,000 ML IV SCH (07:15)
[2021-12-04] MEDS ORDERED: [UNRECOGNIZED DRUG - OTHER] PO PRN (07:30)
[2021-12-04] MEDS ORDERED: Potassium Chloride 20 MEQ Tab.ER PO ONE (08:00)
[2021-12-04] MEDS: Multivitamin Tab PO SCH (08:23)
[2021-12-04] MEDS: Cholecalciferol (Vitamin D3) 10 MCG Tab PO SCH (08:23)
[2021-12-04] MEDS: Enoxaparin 40 MG/0.4 ML Syringe SUBCUT SCH (08:24)
[2021-12-04] MEDS: Aspirin 81 MG Tab.EC PO SCH (08:24)
[2021-12-04] MEDS ORDERED: ASCORBIC ACID PO SCH (09:00)
[2021-12-04] MEDS ORDERED: COD LIVER OIL PO SCH (09:00)
[2021-12-04] MEDS ORDERED: Brimonidine 0.2% Ophth Soln 5 ML Bottle EYERT SCH (09:00)
[2021-12-04] MEDS ORDERED: [UNRECOGNIZED DRUG - MIXTURE] PO SCH (09:00)
[2021-12-04] MEDS ORDERED: ALOE VERA 25 MG PO SCH (09:00)
[2021-12-04] MEDS ORDERED: CRANBERRY PO SCH (09:00)
[2021-12-04] MEDS ORDERED: GRAPE SEED EXTRACT PO SCH (09:00)
[2021-12-04] MEDS: Brimonidine 0.2% Ophth Soln 5 ML Bottle EYERT SCH ×3 (09:17→21:27)
[2021-12-04] MEDS ORDERED: Furosemide 20 MG/2 ML VIAL IVPUSH SCH (15:00)
[2021-12-04] MEDS: methylPREDNISolone Sodium Succinate 40 MG/1 ML SDV IVPUSH SCH (15:16)
[2021-12-05] MEDS: Albuterol/Ipratropium 3.0-0.5 MG/3 ML Neb Soln NEB SCH ×4 (00:22→18:35)
[2021-12-05 06:46] LABS: CARBON DIOXIDE,CO2 42.4 mmol/L (21.0-32.0); POTASSIUM,K 4.5 mmol/L (3.5-5.1)
[2021-12-05] MEDS: Enoxaparin 40 MG/0.4 ML Syringe SUBCUT SCH (08:29)
[2021-12-05] MEDS: Multivitamin Tab PO SCH (08:30)
[2021-12-05] MEDS: Cholecalciferol (Vitamin D3) 10 MCG Tab PO SCH (08:30)
[2021-12-05] MEDS: Aspirin 81 MG Tab.EC PO SCH (08:30)
[2021-12-05] MEDS: Brimonidine 0.2% Ophth Soln 5 ML Bottle EYERT SCH ×2 (08:31→21:11)
[2021-12-05] MEDS: methylPREDNISolone Sodium Succinate 40 MG/1 ML SDV IVPUSH SCH (08:31)
[2021-12-05] MEDS ORDERED: diphenhydrAMINE 25 MG Cap PO ONE ×2 (10:04→22:45)
[2021-12-05] MEDS: cefTRIAXone 1 GM in Sodium Chloride 0.9% 50 ML IV SCH (22:07)
[2021-12-05] MEDS: Azithromycin 500 MG in Sodium Chloride 0.9% 250 ML IV SCH (22:41)
[2021-12-06] MEDS: Albuterol/Ipratropium 3.0-0.5 MG/3 ML Neb Soln NEB SCH ×3 (00:25→11:11)
[2021-12-06 06:30] LABS: CARBON DIOXIDE,CO2 41.2 mmol/L (21.0-32.0); POTASSIUM,K 4.7 mmol/L (3.5-5.1)
[2021-12-06 07:59] VITALS: BP 142/55; PULSE 76
[2021-12-06] MEDS: Enoxaparin 40 MG/0.4 ML Syringe SUBCUT SCH (08:02)
[2021-12-06] MEDS: Multivitamin Tab PO SCH (08:03)
[2021-12-06] MEDS: methylPREDNISolone Sodium Succinate 40 MG/1 ML SDV IVPUSH SCH (08:03)
[2021-12-06] MEDS: Aspirin 81 MG Tab.EC PO SCH (08:04)
[2021-12-06] MEDS: Cholecalciferol (Vitamin D3) 10 MCG Tab PO SCH (08:04)
[2021-12-06] MEDS: Brimonidine 0.2% Ophth Soln 5 ML Bottle EYERT SCH (08:04)
== END 2021-12-06 13:30 | disposition home or self-care (01) | DRG 189 ==
LOC: MW.ED 13:55 → MW.MS 15:06
PROVIDERS: ADMIT Internal Medicine; ATTEND Internal Medicine
DX: J44.1 Chronic obstructive pulmonary disease with (acute) exacerbation (principal); J96.01 Acute respiratory failure with hypoxia; I42.9 Cardiomyopathy, unspecified; J43.9 Emphysema, unspecified; E87.6 Hypokalemia; D64.9 Anemia, unspecified; I10 Essential (primary) hypertension; H54.7 Unspecified visual loss; E78.00 Pure hypercholesterolemia, unspecified; K21.9 Gastro-esophageal reflux disease without esophagitis; K44.9 Diaphragmatic hernia without obstruction or gangrene; Z20.822 Contact with and (suspected) exposure to COVID-19; H40.9 Unspecified glaucoma; R32 Unspecified urinary incontinence; M19.90 Unspecified osteoarthritis, unspecified site; G89.29 Other chronic pain; M54.9 Dorsalgia, unspecified; M54.2 Cervicalgia; M81.0 Age-related osteoporosis without current pathological fracture; G62.9 Polyneuropathy, unspecified; F41.9 Anxiety disorder, unspecified; F32.A Depression, unspecified; Z98.49 Cataract extraction status, unspecified eye; Z88.5 Allergy status to narcotic agent; Z79.82 Long term (current) use of aspirin; Z79.899 Other long term (current) drug therapy; Z91.09 Other allergy status, other than to drugs and biological substances; Z88.8 Allergy status to other drugs, medicaments and biological substances; Z90.89 Acquired absence of other organs; Z90.49 Acquired absence of other specified parts of digestive tract; Z90.710 Acquired absence of both cervix and uterus
CPT/HCPCS: 36415; 70450; 71045; 80053; 82607; 84443; 84484; 85025; 85652; 86592; J3490; U0002; 80048; 81003; 83735; 93005; 93010; 94640; 97162-GP; 97530-GP; 99285; A9270-GY; J0456; J0696; J1650; J1940; J2920; J3475; J7050; J7620-GY

== ENCOUNTER 2022-03-16 22:58 | Emergency (ER) | payer MEDICARE, OTHER ==
[2022-03-16] MEDS ORDERED: Sodium Chloride 0.9% 10 ML Syringe FLUSH PRN (23:44)
[2022-03-16] MEDS ORDERED: Sodium Chloride 0.9% 2.5 ML Syringe FLUSH PRN (23:44)
[2022-03-17] MEDS ORDERED: diphenhydrAMINE 25 MG Cap ONE (02:58)
[2022-03-17] MEDS ORDERED: Iopamidol 755 MG/ML 500 ML Multipack Bottle IVPUSH STA (05:55)
[2022-03-17 06:04] LABS: CHLORIDE,CL 103 mmol/L (98-107); POTASSIUM,K 3.9 mmol/L (3.5-5.1); SODIUM,NA 144 mmol/L (136-145)
[2022-03-17 06:05] LABS: BLOOD UREA NITROGEN,BUN 23 mg/dL (7.0-18.0); CARBON DIOXIDE,CO2 37.7 mmol/L (21.0-32.0); ESTIMATED GFR 86 mL/min (>60); GLUCOSE RANDOM 95 mg/dL (74-106)
[2022-03-17 06:06] LABS: LIPASE 196 U/L (73-393)
[2022-03-17 06:44] VITALS: BP 126/65; PULSE 75
== END 2022-03-17 06:42 | disposition home or self-care (01) ==
LOC: MW.ED 22:58
DX: N39.0 Urinary tract infection, site not specified (principal); I10 Essential (primary) hypertension; J43.9 Emphysema, unspecified; K21.9 Gastro-esophageal reflux disease without esophagitis; M19.90 Unspecified osteoarthritis, unspecified site; Z88.8 Allergy status to other drugs, medicaments and biological substances; Z88.5 Allergy status to narcotic agent; Z79.82 Long term (current) use of aspirin; Z79.899 Other long term (current) drug therapy
CPT/HCPCS: 36415; 74177; 80053; 81001; 83690; 85025; 87086; 99284; A9270; J3490; Q9967

== ENCOUNTER 2022-03-20 03:12 | Emergency (ER) | payer MEDICARE, OTHER ==
[2022-03-20 04:34] VITALS: BP 137/57
[2022-03-20 04:44] LABS: BLOOD UREA NITROGEN,BUN 12 mg/dL (7.0-18.0); CARBON DIOXIDE,CO2 39.5 mmol/L (21.0-32.0); CHLORIDE,CL 100 mmol/L (98-107); GLUCOSE RANDOM 89 mg/dL (74-106); POTASSIUM,K 3.3 mmol/L (3.5-5.1); SODIUM,NA 142 mmol/L (136-145)
[2022-03-20 04:53] LABS: ESTIMATED GFR 89 mL/min (>60)
[2022-03-20 12:07] VITALS: PULSE 79
== END 2022-03-20 11:45 | disposition home or self-care (01) ==
LOC: MW.ED 03:12
DX: J44.9 Chronic obstructive pulmonary disease, unspecified (principal); I10 Essential (primary) hypertension; M19.90 Unspecified osteoarthritis, unspecified site; Z88.8 Allergy status to other drugs, medicaments and biological substances; Z88.5 Allergy status to narcotic agent; Z91.041 Radiographic dye allergy status; Z79.82 Long term (current) use of aspirin; Z79.899 Other long term (current) drug therapy
CPT/HCPCS: 36415; 71045; 80053; 80305; 80307; 81001; 82803; 83735; 83880; 84443; 84484; 85025; 86140; 93005; 99285; U0002

== ENCOUNTER 2022-03-28 20:23 | Emergency (ER) | payer MEDICARE, OTHER ==
[2022-03-28] MEDS ORDERED: Sodium Chloride 0.9% 10 ML Syringe FLUSH PRN (21:01)
[2022-03-28] MEDS ORDERED: Sodium Chloride 0.9% 2.5 ML Syringe FLUSH PRN (21:01)
[2022-03-28 21:47] LABS: CARBON DIOXIDE,CO2 36.3 mmol/L (21.0-32.0); POTASSIUM,K 3.6 mmol/L (3.5-5.1)
[2022-03-28 23:09] LABS: ACETAMINOPHEN <2.0 ug/mL
[2022-03-29 00:54] VITALS: BP 135/61; PULSE 70
== END 2022-03-29 00:54 | disposition home or self-care (01) ==
LOC: MW.ED 20:23
DX: F42.9 Obsessive-compulsive disorder, unspecified (principal); J44.9 Chronic obstructive pulmonary disease, unspecified; E78.00 Pure hypercholesterolemia, unspecified; Z79.899 Other long term (current) drug therapy; Z88.5 Allergy status to narcotic agent; Z88.8 Allergy status to other drugs, medicaments and biological substances
CPT/HCPCS: 36415; 71045; 80053; 80143; 80179; 80305; 80307; 81001; 82803; 84443; 85025; 93005; 99285; J3490

== ENCOUNTER 2022-05-13 15:49 | Observation (INO) | payer MEDICARE, OTHER ==
[2022-05-13] MEDS ORDERED: Albuterol/Ipratropium 3.0-0.5 MG/3 ML Neb Soln NEB ONE (16:08)
[2022-05-13 16:48] LABS: CORONAVIRUS COVID-19 NAA NEGATIVE (NEGATIVE); INFLUENZA A NAA NEGATIVE (NEGATIVE); INFLUENZA B NAA NEGATIVE (NEGATIVE)
[2022-05-13 16:48] LABS: CARBON DIOXIDE,CO2 42.6 mmol/L (21.0-32.0); POTASSIUM,K 3.9 mmol/L (3.5-5.1)
[2022-05-13] MEDS ORDERED: Furosemide 20 MG/2 ML VIAL IVPUSH ONE (16:54)
[2022-05-13] MEDS ORDERED: methylPREDNISolone Sodium Succinate 125 MG/2 ML SDV IVPUSH ONE (17:17)
[2022-05-13] MEDS ORDERED: LORazepam 0.5 MG Tab PO PRN (23:21)
[2022-05-13] MEDS ORDERED: Azithromycin 500 MG in Sodium Chloride 0.9% 250 ML IV SCH (23:30)
[2022-05-13] MEDS ORDERED: BRIMONIDINE 0.2% EYERT SCH (23:30)
[2022-05-13] MEDS ORDERED: cefTRIAXone 1 GM in Sodium Chloride 0.9% 50 ML IV SCH (23:30)
[2022-05-13] MEDS: Heparin Sodium 5,000 Units/ML Vial SUBCUT SCH (23:49)
[2022-05-13] MEDS: Albuterol/Ipratropium 3.0-0.5 MG/3 ML Neb Soln NEB SCH (23:49)
[2022-05-13] MEDS: Carboxymethylcellulose Sodium 0.5% Ophth Soln 0.4 ML UD Box of 30 EYEBOTH SCH (23:50)
[2022-05-14 06:12] LABS: CARBON DIOXIDE,CO2 43.1 mmol/L (21.0-32.0); POTASSIUM,K 3.3 mmol/L (3.5-5.1)
[2022-05-14] MEDS: Heparin Sodium 5,000 Units/ML Vial SUBCUT SCH (06:34)
[2022-05-14] MEDS: Albuterol/Ipratropium 3.0-0.5 MG/3 ML Neb Soln NEB SCH ×2 (07:12→12:45)
[2022-05-14] MEDS: Carboxymethylcellulose Sodium 0.5% Ophth Soln 0.4 ML UD Box of 30 EYEBOTH SCH (08:51)
[2022-05-14] MEDS ORDERED: Metolazone 5 MG Tab PO SCH (09:00)
[2022-05-14] MEDS ORDERED: Furosemide 20 MG/2 ML VIAL IVPUSH SCH (09:00)
[2022-05-14] MEDS ORDERED: Potassium Chloride 8 MEQ Tab.ER PO SCH (09:00)
[2022-05-14] MEDS ORDERED: amLODIPine 5 MG Tab PO SCH (09:00)
[2022-05-14] MEDS ORDERED: methylPREDNISolone Sodium Succinate 40 MG/1 ML SDV IVPUSH SCH (09:00)
[2022-05-14] MEDS ORDERED: Aspirin 81 MG Tab.EC PO SCH (09:00)
[2022-05-14] MEDS ORDERED: BRIMONIDINE 0.2% EYERT SCH (09:00)
[2022-05-14] MEDS ORDERED: Potassium Chloride 20 MEQ Tab.ER PO ONE (11:09)
[2022-05-14 12:40] VITALS: BP 128/66; PULSE 74
== END 2022-05-14 14:45 | disposition home or self-care (01) ==
LOC: MW.ED 15:49 → MW.MS 17:24
PROVIDERS: ADMIT Internal Medicine; ATTEND Internal Medicine
DX: J44.1 Chronic obstructive pulmonary disease with (acute) exacerbation (principal); I11.0 Hypertensive heart disease with heart failure; I50.32 Chronic diastolic (congestive) heart failure; E78.00 Pure hypercholesterolemia, unspecified; I42.9 Cardiomyopathy, unspecified; K21.9 Gastro-esophageal reflux disease without esophagitis; M19.90 Unspecified osteoarthritis, unspecified site; N39.3 Stress incontinence (female) (male); M81.0 Age-related osteoporosis without current pathological fracture; M54.2 Cervicalgia; G89.29 Other chronic pain; F41.9 Anxiety disorder, unspecified; F32.A Depression, unspecified; Z99.81 Dependence on supplemental oxygen; Z79.899 Other long term (current) drug therapy; Z79.82 Long term (current) use of aspirin; Z20.822 Contact with and (suspected) exposure to COVID-19; Z88.8 Allergy status to other drugs, medicaments and biological substances; Z88.1 Allergy status to other antibiotic agents; Z91.041 Radiographic dye allergy status; Z87.19 Personal history of other diseases of the digestive system; Z98.890 Other specified postprocedural states; Z87.891 Personal history of nicotine dependence; Z90.710 Acquired absence of both cervix and uterus
CPT/HCPCS: 0240U; 36415; 71045; 80048; 80053; 81003; 82803; 83735; 83880; 84484; 85025; 93005; 94640; 96374; 96375; 97161; 99285; A9270; J0456; J0696; J1644; J1940; J2920; J2930; J7050; 96365; 96367; 96372; 96376; 99221; 99238; G0378; J3490; J7620-GY

== ENCOUNTER 2022-06-18 08:34 | Observation (INO) | payer MEDICARE, OTHER ==
[2022-06-18] MEDS ORDERED: Sodium Chloride 0.9% 2.5 ML Syringe FLUSH PRN (08:48)
[2022-06-18] MEDS ORDERED: Sodium Chloride 0.9% 10 ML Syringe FLUSH PRN (08:48)
[2022-06-18 09:07] LABS: CARBON DIOXIDE,CO2 42.9 mmol/L (21.0-32.0); POTASSIUM,K 3.6 mmol/L (3.5-5.1)
[2022-06-18] MEDS ORDERED: Acetaminophen 325 MG Tab PO ONE ×2 (10:16→10:17)
[2022-06-18] MEDS ORDERED: Lidocaine 1% with EPINEPHrine 1:100,000 10 ML MDV INJECT ONE (10:17)
[2022-06-18] MEDS ORDERED: Lidocaine 1% with EPINEPHrine 1:100,000 20 ML MDV ONE (10:20)
[2022-06-18] MEDS ORDERED: Lidocaine 1% with EPINEPHrine 1:100,000 20 ML MDV INJECT ONE (10:24)
[2022-06-18] MEDS ORDERED: Bacitracin Oint 1 GM U/D Packet TOP ONE (10:31)
[2022-06-18] MEDS ORDERED: Docusate Sodium 100 MG Cap PO PRN (13:18)
[2022-06-18] MEDS ORDERED: Ondansetron 4 MG/2 ML SDV IVPUSH PRN (13:18)
[2022-06-18] MEDS ORDERED: Acetaminophen 325 MG Tab PO PRN (13:18)
[2022-06-18] MEDS ORDERED: Aspirin 81 MG Tab.Chew PO ONE (21:29)
[2022-06-18] MEDS ORDERED: Loratadine 10 MG Tab PO ONE (21:30)
[2022-06-18] MEDS: BRIMONIDINE 0.2% EYERT SCH (21:59)
[2022-06-18] MEDS: Fluticasone/Salmeterol 250-50 MCG Inhalation Powder 14/Diskus INH SCH (23:25)
[2022-06-19 06:42] LABS: CARBON DIOXIDE,CO2 40.2 mmol/L (21.0-32.0); POTASSIUM,K 3.9 mmol/L (3.5-5.1)
[2022-06-19] MEDS: BRIMONIDINE 0.2% EYERT SCH (08:40)
[2022-06-19] MEDS: Fluticasone/Salmeterol 250-50 MCG Inhalation Powder 14/Diskus INH SCH (08:43)
[2022-06-19] MEDS ORDERED: Aspirin 81 MG Tab.EC PO SCH (09:00)
[2022-06-19] MEDS ORDERED: Loratadine 10 MG Tab PO SCH (09:00)
[2022-06-19 17:44] VITALS: BP 110/62; PULSE 70
== END 2022-06-19 17:30 | disposition home or self-care (01) ==
LOC: MW.ED 08:34 → MW.MS 11:11
PROVIDERS: ADMIT Internal Medicine; ATTEND Internal Medicine
DX: R55 Syncope and collapse (principal); S01.01XA Laceration without foreign body of scalp, initial encounter; I27.20 Pulmonary hypertension, unspecified; I73.9 Peripheral vascular disease, unspecified; I50.32 Chronic diastolic (congestive) heart failure; J96.11 Chronic respiratory failure with hypoxia; J96.12 Chronic respiratory failure with hypercapnia; J44.9 Chronic obstructive pulmonary disease, unspecified; K21.9 Gastro-esophageal reflux disease without esophagitis; M19.90 Unspecified osteoarthritis, unspecified site; M54.2 Cervicalgia; G89.29 Other chronic pain; M54.9 Dorsalgia, unspecified; F41.9 Anxiety disorder, unspecified; F32.A Depression, unspecified; M81.0 Age-related osteoporosis without current pathological fracture; Z87.891 Personal history of nicotine dependence; Z87.09 Personal history of other diseases of the respiratory system; Z99.81 Dependence on supplemental oxygen; Z79.899 Other long term (current) drug therapy; Z79.82 Long term (current) use of aspirin; Z88.8 Allergy status to other drugs, medicaments and biological substances; Z88.5 Allergy status to narcotic agent; Z98.890 Other specified postprocedural states
CPT/HCPCS: 36415; 70450; 70450-26; 71045; 71045-26; 80048; 80053; 81001; 83735; 85025; 93005; 93306; 99285; A9270-GY; G0378; J3490

== ENCOUNTER 2022-07-09 17:52 | Inpatient (IN) | payer MEDICARE, OTHER ==
[2022-07-09] MEDS ORDERED: Sodium Chloride 0.9% 10 ML Syringe FLUSH PRN (18:51)
[2022-07-09] MEDS ORDERED: Sodium Chloride 0.9% 2.5 ML Syringe FLUSH PRN (18:51)
[2022-07-09 19:31] LABS: CARBON DIOXIDE,CO2 40.5 mmol/L (21.0-32.0); POTASSIUM,K 3.8 mmol/L (3.5-5.1)
[2022-07-09 19:54] LABS: CORONAVIRUS COVID-19 NAA NEGATIVE (NEGATIVE); INFLUENZA A NAA NEGATIVE (NEGATIVE); INFLUENZA B NAA NEGATIVE (NEGATIVE); RESPIRATORY SYNCYTIAL VIR NAA NEGATIVE (NEGATIVE)
[2022-07-09] MEDS ORDERED: Furosemide 40 MG/4 ML VIAL IVPUSH ONE (20:13)
[2022-07-09] MEDS: cefTRIAXone 1 GM in Sodium Chloride 0.9% 50 ML IV SCH (23:35)
[2022-07-10 07:04] LABS: CARBON DIOXIDE,CO2 41.4 mmol/L (21.0-32.0); POTASSIUM,K 3.4 mmol/L (3.5-5.1)
[2022-07-10] MEDS: Loratadine 10 MG Tab PO SCH (09:18)
[2022-07-10] MEDS: Furosemide 40 MG/4 ML VIAL IVPUSH SCH ×2 (09:19→21:13)
[2022-07-10] MEDS: Fluticasone/Salmeterol 250-50 MCG Inhalation Powder 14/Diskus INH SCH ×2 (09:24→21:14)
[2022-07-10] MEDS ORDERED: Potassium Chloride 20 MEQ Tab.ER PO ONE (10:42)
[2022-07-10] MEDS ORDERED: fluvoxaMINE 50 MG Tab PO STA (13:17)
[2022-07-10] MEDS ORDERED: Haloperidol 1 MG Tab PO ONE (13:17)
[2022-07-10] MEDS: fluvoxaMINE 50 MG Tab PO SCH (21:13)
[2022-07-10] MEDS: Haloperidol 5 MG Tab PO SCH (21:13)
[2022-07-10] MEDS ORDERED: Ondansetron 4 MG/2 ML SDV IVPUSH PRN (22:00)
[2022-07-10] MEDS: cefTRIAXone 1 GM in Sodium Chloride 0.9% 50 ML IV SCH (22:21)
[2022-07-11 06:37] LABS: CARBON DIOXIDE,CO2 43.5 mmol/L (21.0-32.0); POTASSIUM,K 3.4 mmol/L (3.5-5.1)
[2022-07-11] MEDS: Acetaminophen 325 MG Tab PO PRN ×2 (06:42→22:43)
[2022-07-11] MEDS ORDERED: Potassium Chloride 20 MEQ Tab.ER PO ONE (06:53)
[2022-07-11] MEDS: Furosemide 40 MG/4 ML VIAL IVPUSH SCH ×2 (08:33→20:54)
[2022-07-11] MEDS: Loratadine 10 MG Tab PO SCH (08:35)
[2022-07-11] MEDS: Fluticasone/Salmeterol 250-50 MCG Inhalation Powder 14/Diskus INH SCH ×2 (08:35→20:54)
[2022-07-11] MEDS: fluvoxaMINE 50 MG Tab PO SCH (20:54)
[2022-07-11] MEDS: Haloperidol 5 MG Tab PO SCH (20:54)
[2022-07-11] MEDS: cefTRIAXone 1 GM in Sodium Chloride 0.9% 50 ML IV SCH (22:34)
[2022-07-12 05:41] LABS: POTASSIUM,K 3.4 mmol/L (3.5-5.1)
[2022-07-12 05:58] LABS: CARBON DIOXIDE,CO2 50.3 mmol/L (21.0-32.0)
[2022-07-12] MEDS ORDERED: Potassium Chloride 20 MEQ Tab.ER PO ONE (07:04)
[2022-07-12] MEDS ORDERED: Furosemide 40 MG/4 ML VIAL IVPUSH SCH (08:00)
[2022-07-12] MEDS: Loratadine 10 MG Tab PO SCH (08:42)
[2022-07-12] MEDS: Fluticasone/Salmeterol 250-50 MCG Inhalation Powder 14/Diskus INH SCH (08:44)
[2022-07-12 13:03] VITALS: BP 151/73; PULSE 80
== END 2022-07-12 12:35 | disposition home or self-care (01) | DRG 602 ==
LOC: MW.ED 17:52 → MW.MS 20:13 → OBSVTOIN 07-10 13:19 → INTOOBSV 07-10 16:49
PROVIDERS: ADMIT Internal Medicine; ATTEND Internal Medicine
DX: L03.115 Cellulitis of right lower limb (principal); I50.33 Acute on chronic diastolic (congestive) heart failure; J96.11 Chronic respiratory failure with hypoxia; I42.9 Cardiomyopathy, unspecified; I11.0 Hypertensive heart disease with heart failure; G62.9 Polyneuropathy, unspecified; F22 Delusional disorders; F42.9 Obsessive-compulsive disorder, unspecified; E87.6 Hypokalemia; I73.9 Peripheral vascular disease, unspecified; I27.20 Pulmonary hypertension, unspecified; E78.5 Hyperlipidemia, unspecified; K21.9 Gastro-esophageal reflux disease without esophagitis; H40.9 Unspecified glaucoma; E78.00 Pure hypercholesterolemia, unspecified; J43.9 Emphysema, unspecified; M19.90 Unspecified osteoarthritis, unspecified site; Z20.822 Contact with and (suspected) exposure to COVID-19; G89.29 Other chronic pain; M81.0 Age-related osteoporosis without current pathological fracture; M54.9 Dorsalgia, unspecified; M54.2 Cervicalgia; F41.9 Anxiety disorder, unspecified; F32.A Depression, unspecified; Z79.82 Long term (current) use of aspirin; Z79.899 Other long term (current) drug therapy; Z98.49 Cataract extraction status, unspecified eye; Z98.890 Other specified postprocedural states; Z86.010 Personal history of colon polyps; Z90.89 Acquired absence of other organs; Z90.710 Acquired absence of both cervix and uterus; Z95.5 Presence of coronary angioplasty implant and graft; Z90.49 Acquired absence of other specified parts of digestive tract; Z87.891 Personal history of nicotine dependence; Z88.5 Allergy status to narcotic agent; Z88.8 Allergy status to other drugs, medicaments and biological substances
CPT/HCPCS: 0241U; 36415; 71045; 71045-26; 80048; 80053; 83605; 83735; 83880; 85025; 87040; 96365; 96374; 96375; 96376; 99284-25; 99285; A9270-GY; G0378; J0696; J1940; J3490

== ENCOUNTER 2022-07-17 04:03 | Emergency (ER) | payer MEDICARE, OTHER ==
[2022-07-17] MEDS ORDERED: Sodium Chloride 0.9% 10 ML Syringe FLUSH PRN (04:18)
[2022-07-17] MEDS ORDERED: Sodium Chloride 0.9% 2.5 ML Syringe FLUSH PRN (04:18)
[2022-07-17] MEDS: Morphine 2 MG/ML SYRINGE IVPUSH ONE ×3 (04:28→04:30)
[2022-07-17] MEDS ORDERED: Sodium Chloride 0.9% 500 ML IV SCH (04:30)
[2022-07-17 04:44] LABS: CARBON DIOXIDE,CO2 39.2 mmol/L (21.0-32.0); POTASSIUM,K 3.5 mmol/L (3.5-5.1)
[2022-07-17] MEDS ORDERED: Iopamidol 755 MG/ML 500 ML Multipack Bottle IVPUSH ONE (05:00)
[2022-07-17] MEDS ORDERED: diphenhydrAMINE 50 MG/ML SDV IVPUSH ONE (05:22)
[2022-07-17] MEDS ORDERED: diphenhydrAMINE 50 MG/ML SDV ONE (05:23)
[2022-07-17 08:30] VITALS: BP 117/74; PULSE 76
== END 2022-07-17 08:30 | disposition home health service (06) ==
LOC: MW.ED 04:03
DX: R10.32 Left lower quadrant pain (principal); J90 Pleural effusion, not elsewhere classified; I11.0 Hypertensive heart disease with heart failure; I50.32 Chronic diastolic (congestive) heart failure; J44.9 Chronic obstructive pulmonary disease, unspecified; Z88.5 Allergy status to narcotic agent; Z91.041 Radiographic dye allergy status; Z88.8 Allergy status to other drugs, medicaments and biological substances; Z79.82 Long term (current) use of aspirin
CPT/HCPCS: 36415; 74177; 80053; 81001; 83605; 83690; 85025; 96361; 96374; 96375; 99285; J1200; J2270; J7040; Q9967; 99283

== ENCOUNTER 2022-07-27 16:07 | Emergency (ER) | payer MEDICARE, OTHER ==
[2022-07-27] MEDS ORDERED: Sodium Chloride 0.9% 2.5 ML Syringe FLUSH PRN (16:17)
[2022-07-27] MEDS ORDERED: Sodium Chloride 0.9% 10 ML Syringe FLUSH PRN (16:17)
[2022-07-27 16:58] LABS: BASOPHILS PERCENT AUTO 0.3 % (0.0-1.5); EOSINOPHILS ABSOLUTE AUTO 0.1 K/uL (0.0-0.7); EOSINOPHILS PERCENT AUTO 1.9 % (0.0-7.0); HEMATOCRIT 33.9 % (36.0-46.0); HEMOGLOBIN 9.9 g/dL (12.0-16.0); LYMPHOCYTES PERCENT AUTO 15.4 % (16.0-40.0); MEAN CORPUSCULAR HEMOGLOBIN 25.1 pg (27.0-32.0); MEAN CORPUSCULAR HGB CONC 29.2 g/dL (31.0-37.0); MEAN CORPUSCULAR VOLUME 85.8 fL (80.0-98.0); MONOCYTES ABSOLUTE AUTO 0.8 K/uL (0.0-0.8); MONOCYTES PERCENT AUTO 12.4 % (0.0-15.0); NEUTROPHILS ABSOLUTE AUTO 4.4 K/uL (1.4-5.7); NRBC ABSOLUTE 0 K/uL; PLATELET COUNT,PLT 268 K/uL (150-400); RED BLOOD CELL COUNT 3.95 M/uL (4.30-5.90); WHITE BLOOD CELL COUNT,WBC 6.29 K/uL (4.0-11.0)
[2022-07-27 17:12] LABS: CORONAVIRUS COVID-19 NAA NEGATIVE (NEGATIVE); INFLUENZA A NAA NEGATIVE (NEGATIVE); INFLUENZA B NAA NEGATIVE (NEGATIVE)
[2022-07-27 17:36] LABS: ALANINE AMINOTRANSFERASE,ALT 25 IU/L (14-63); ALBUMIN 2.9 g/dL (3.4-5.0); ALKALINE PHOSPHATASE 122 U/L (46-116); ASPARTATE AMNIOTRANSFERASE,AST 38 IU/L (15-37); BILIRUBIN TOTAL 0.8 mg/dL (0.2-1.0); BLOOD UREA NITROGEN,BUN 19 mg/dL (7.0-18.0); CALCIUM 8.3 mg/dL (8.5-10.1); CARBON DIOXIDE,CO2 40.7 mmol/L (21.0-32.0); CHLORIDE,CL 101 mmol/L (98-107); CREATININE 0.9 mg/dL (0.6-1.0); GLUCOSE RANDOM 95 mg/dL (74-106); POTASSIUM,K 4.7 mmol/L (3.5-5.1); PROTEIN TOTAL,TP 5.9 g/dL (6.4-8.2); SODIUM,NA 144 mmol/L (136-145)
[2022-07-27 17:38] LABS: MAGNESIUM 2.1 mg/dL (1.8-2.4)
[2022-07-27 17:39] LABS: ESTIMATED GFR 63 mL/min (>60)
[2022-07-27 18:30] VITALS: BP 137/54; PULSE 76
[2022-07-27 19:10] LABS: APPEARANCE,URINE CLEAR; BILIRUBIN,URINE NEGATIVE (NEGATIVE); COLOR,URINE YELLOW; GLUCOSE,URINE NEGATIVE (NEGATIVE); KETONES,URINE NEGATIVE (NEGATIVE); LEUKOCYTE ESTERASE,URINE NEGATIVE (NEGATIVE); NITRITE,URINE NEGATIVE (NEGATIVE); OCCULT BLOOD,URINE NEGATIVE (NEGATIVE); PH,URINE 5.5 (5.0-8.0); PROTEIN,URINE NEGATIVE (NEGATIVE); UROBILINOGEN,URINE 0.2 EU/dL (<2.0)
== END 2022-07-27 19:55 | disposition home or self-care (01) ==
LOC: MW.ED 16:07
DX: R06.02 Shortness of breath (principal); F42.2 Mixed obsessional thoughts and acts; J44.9 Chronic obstructive pulmonary disease, unspecified; I11.0 Hypertensive heart disease with heart failure; K21.9 Gastro-esophageal reflux disease without esophagitis; Z79.899 Other long term (current) drug therapy; Z88.5 Allergy status to narcotic agent; Z91.041 Radiographic dye allergy status; Z88.8 Allergy status to other drugs, medicaments and biological substances; Z79.82 Long term (current) use of aspirin; Z20.822 Contact with and (suspected) exposure to COVID-19
CPT/HCPCS: 0240U; 36415; 71045; 80053; 81003; 83735; 83880; 84484; 85025; 99285; 93010; 99283

== ENCOUNTER 2022-07-30 17:46 | Emergency (ER) | payer MEDICARE, OTHER ==
[2022-07-30 21:09] LABS: APPEARANCE,URINE CLEAR; BILIRUBIN,URINE NEGATIVE (NEGATIVE); COLOR,URINE YELLOW; GLUCOSE,URINE NEGATIVE (NEGATIVE); KETONES,URINE NEGATIVE (NEGATIVE); LEUKOCYTE ESTERASE,URINE NEGATIVE (NEGATIVE); NITRITE,URINE NEGATIVE (NEGATIVE); OCCULT BLOOD,URINE NEGATIVE (NEGATIVE); PROTEIN,URINE NEGATIVE (NEGATIVE)
[2022-07-30 21:36] VITALS: BP 110/60; PULSE 72
== END 2022-07-30 21:35 | disposition home or self-care (01) ==
LOC: MW.ED 17:46
DX: Z71.1 Person with feared health complaint in whom no diagnosis is made (principal); J44.9 Chronic obstructive pulmonary disease, unspecified; I11.9 Hypertensive heart disease without heart failure; K21.9 Gastro-esophageal reflux disease without esophagitis; Z91.041 Radiographic dye allergy status; Z88.8 Allergy status to other drugs, medicaments and biological substances; Z79.82 Long term (current) use of aspirin
CPT/HCPCS: 81003; 99283; 99284

== ENCOUNTER 2022-08-31 14:56 | Emergency (ER) | payer MEDICARE, OTHER ==
[2022-08-31] MEDS ORDERED: Ondansetron 4 MG/2 ML SDV IVPUSH ONE (15:53)
[2022-08-31 16:00] LABS: BASOPHILS PERCENT AUTO 0.2 % (0.0-1.5); HEMATOCRIT 34.9 % (36.0-46.0); HEMOGLOBIN 10.5 g/dL (12.0-16.0); LYMPHOCYTES ABSOLUTE AUTO 0.6 K/uL (0.6-2.4); LYMPHOCYTES PERCENT AUTO 9.2 % (16.0-40.0); MEAN CORPUSCULAR HEMOGLOBIN 25.1 pg (27.0-32.0); MEAN CORPUSCULAR HGB CONC 30.1 g/dL (31.0-37.0); MEAN CORPUSCULAR VOLUME 83.3 fL (80.0-98.0); MONOCYTES ABSOLUTE AUTO 0.8 K/uL (0.0-0.8); MONOCYTES PERCENT AUTO 11.9 % (0.0-15.0); NEUTROPHILS ABSOLUTE AUTO 5.2 K/uL (1.4-5.7); NEUTROPHILS PERCENT AUTO 78.7 % (48.0-80.0); PLATELET COUNT,PLT 329 K/uL (150-400); RED BLOOD CELL COUNT 4.19 M/uL (4.30-5.90); WHITE BLOOD CELL COUNT,WBC 6.62 K/uL (4.0-11.0)
[2022-08-31] MEDS ORDERED: Sodium Chloride 0.9% 500 ML IV SCH (16:00)
[2022-08-31 16:03] LABS: APPEARANCE,URINE CLEAR; COLOR,URINE YELLOW; GLUCOSE,URINE NEGATIVE (NEGATIVE); KETONES,URINE 15 mg/dL (NEGATIVE); LEUKOCYTE ESTERASE,URINE NEGATIVE (NEGATIVE); NITRITE,URINE NEGATIVE (NEGATIVE); OCCULT BLOOD,URINE NEGATIVE (NEGATIVE); PH,URINE 6.5 (5.0-8.0); PROTEIN,URINE NEGATIVE (NEGATIVE)
[2022-08-31 16:08] LABS: BILIRUBIN,URINE SMALL (NEGATIVE)
[2022-08-31 16:11] LABS: BACTERIA,URINE RARE (NEGATIVE); EPITHELIAL CELLS,URINE RARE (NONE-FEW); RBC,URINE 0-1 (0-2/HPF); WBC,URINE 0-1 (0-5/HPF)
[2022-08-31 16:41] LABS: A/G RATIO 0.9 (0.9-1.6); ALBUMIN 2.7 g/dL (3.4-5.0); BILIRUBIN TOTAL 1.3 mg/dL (0.2-1.0); CALCIUM 8.6 mg/dL (8.5-10.1); CARBON DIOXIDE,CO2 44.9 mmol/L (21.0-32.0); CREATININE 0.9 mg/dL (0.6-1.0); EST CRCL DRUG DOSING (CG) 36.8 mL/min; POTASSIUM,K 4.2 mmol/L (3.5-5.1); PROTEIN TOTAL,TP 5.8 g/dL (6.4-8.2)
[2022-08-31] MEDS ORDERED: Sodium Chloride 0.9% 1,000 ML IV ONE (20:17)
[2022-08-31] MEDS ORDERED: fentaNYL 50 MCG/ML SDV IVPUSH ONE (21:34)
[2022-08-31 22:45] VITALS: BP 140/86; PULSE 77
== END 2022-08-31 22:20 ==
LOC: MW.ED 14:56
DX: K56.609 Unspecified intestinal obstruction, unspecified as to partial versus complete obstruction (principal); J44.9 Chronic obstructive pulmonary disease, unspecified; I10 Essential (primary) hypertension; M19.90 Unspecified osteoarthritis, unspecified site; Z79.82 Long term (current) use of aspirin; Z79.51 Long term (current) use of inhaled steroids; Z79.899 Other long term (current) drug therapy
CPT/HCPCS: 36415; 74176; 80053; 81001; 83880; 85025; 96361; 96374; 96375; 99285; J2405; J3010; J7030; J7040

== ENCOUNTER 2022-09-03 18:23 | Inpatient (IN) | payer MEDICARE, OTHER ==
[2022-09-03] MEDS ORDERED: Albuterol/Ipratropium 3.0-0.5 MG/3 ML Neb Soln NEB ONE (18:37)
[2022-09-03] MEDS ORDERED: Sodium Chloride 0.9% 10 ML Syringe FLUSH PRN (18:37)
[2022-09-03] MEDS ORDERED: Sodium Chloride 0.9% 2.5 ML Syringe FLUSH PRN (18:37)
[2022-09-03] MEDS ORDERED: Ondansetron 4 MG/2 ML SDV IVPUSH ONE (18:37)
[2022-09-03 18:59] LABS: HEMATOCRIT 36.7 % (36.0-46.0); HEMOGLOBIN 10.3 g/dL (12.0-16.0); LYMPHOCYTES ABSOLUTE AUTO 0.4 K/uL (0.6-2.4); LYMPHOCYTES PERCENT AUTO 10.5 % (16.0-40.0); MEAN CORPUSCULAR HEMOGLOBIN 24.9 pg (27.0-32.0); MEAN CORPUSCULAR HGB CONC 28.1 g/dL (31.0-37.0); MEAN CORPUSCULAR VOLUME 88.6 fL (80.0-98.0); MONOCYTES ABSOLUTE AUTO 0.8 K/uL (0.0-0.8); MONOCYTES PERCENT AUTO 19.1 % (0.0-15.0); NEUTROPHILS ABSOLUTE AUTO 2.9 K/uL (1.4-5.7); NEUTROPHILS PERCENT AUTO 70.4 % (48.0-80.0); NRBC ABSOLUTE 0 K/uL; PLATELET COUNT,PLT 244 K/uL (150-400); RED BLOOD CELL COUNT 4.14 M/uL (4.30-5.90); WHITE BLOOD CELL COUNT,WBC 4.18 K/uL (4.0-11.0)
[2022-09-03 19:38] LABS: A/G RATIO 0.8 (0.9-1.6); ALANINE AMINOTRANSFERASE,ALT 15 IU/L (14-63); ALBUMIN 2.8 g/dL (3.4-5.0); ALKALINE PHOSPHATASE 89 U/L (46-116); ASPARTATE AMNIOTRANSFERASE,AST 22 IU/L (15-37); BILIRUBIN TOTAL 0.8 mg/dL (0.2-1.0); BLOOD UREA NITROGEN,BUN 23 mg/dL (7.0-18.0); CALCIUM 8.4 mg/dL (8.5-10.1); CHLORIDE,CL 97 mmol/L (98-107); CREATININE 0.9 mg/dL (0.6-1.0); GLUCOSE RANDOM 222 mg/dL (74-106); LIPASE 213 U/L (73-393); MAGNESIUM 2.2 mg/dL (1.8-2.4); POTASSIUM,K 3.9 mmol/L (3.5-5.1); PROTEIN TOTAL,TP 6.3 g/dL (6.4-8.2); SODIUM,NA 142 mmol/L (136-145)
[2022-09-03] MEDS: Cefepime 2 GM in Sodium Chloride 0.9% 50 ML IV SCH (19:40)
[2022-09-03 20:13] LABS: CARBON DIOXIDE,CO2 50.7 mmol/L (21.0-32.0); ESTIMATED GFR 63 mL/min (>60)
[2022-09-03] MEDS ORDERED: Iopamidol 755 MG/ML 500 ML Multipack Bottle IVPUSH ONE (20:27)
[2022-09-04] MEDS ORDERED: Albuterol/Ipratropium 3.0-0.5 MG/3 ML Neb Soln NEB PRN (00:36)
[2022-09-04] MEDS ORDERED: oxyCODONE 5 MG Tab PO PRN (00:36)
[2022-09-04] MEDS ORDERED: Temazepam 15 MG Cap PO PRN (00:36)
[2022-09-04] MEDS ORDERED: Ondansetron 4 MG Tab.DIS PO PRN (00:36)
[2022-09-04] MEDS ORDERED: Ondansetron 4 MG/2 ML SDV IVPUSH PRN (00:36)
[2022-09-04] MEDS ORDERED: Sennosides/Docusate Sodium 50-8.6 MG Tab PO PRN (00:36)
[2022-09-04] MEDS: Sodium Chloride 0.9% 1,000 ML IV SCH ×2 (01:12→15:36)
[2022-09-04] MEDS: Acetaminophen 325 MG Tab PO PRN (03:59)
[2022-09-04 05:46] LABS: PH,VENOUS 7.4 (7.31-7.41)
[2022-09-04 05:52] LABS: HEMATOCRIT 33.7 % (36.0-46.0); HEMOGLOBIN 9.4 g/dL (12.0-16.0); MEAN CORPUSCULAR HEMOGLOBIN 24.4 pg (27.0-32.0); MEAN CORPUSCULAR HGB CONC 27.9 g/dL (31.0-37.0); MEAN CORPUSCULAR VOLUME 87.3 fL (80.0-98.0); MEAN PLATELET VOLUME 9.4 fL (7.40-12.00); RED BLOOD CELL COUNT 3.86 M/uL (4.30-5.90); WHITE BLOOD CELL COUNT,WBC 4.13 K/uL (4.0-11.0)
[2022-09-04 06:09] LABS: CALCIUM 8.3 mg/dL (8.5-10.1); CREATININE 0.8 mg/dL (0.6-1.0); EST CRCL DRUG DOSING (CG) 39.66 mL/min; MAGNESIUM 2.1 mg/dL (1.8-2.4); PHOSPHORUS 2.3 mg/dL (2.6-4.7); POTASSIUM,K 3.9 mmol/L (3.5-5.1)
[2022-09-04 06:28] LABS: CARBON DIOXIDE,CO2 47.8 mmol/L (21.0-32.0)
[2022-09-04] MEDS ORDERED: Phosphorus #1 250 MG Tab PO ONE (08:36)
[2022-09-04] MEDS ORDERED: Dicyclomine 10 MG Cap PO PRN (08:37)
[2022-09-04] MEDS: acetaZOLAMIDE 250 MG Tab PO SCH ×2 (10:11→21:01)
[2022-09-04] MEDS: Bumetanide 1 MG Tab PO SCH (10:12)
[2022-09-04] MEDS: Loratadine 10 MG Tab PO SCH (10:12)
[2022-09-04] MEDS: Enoxaparin 40 MG/0.4 ML Syringe SUBCUT SCH (10:13)
[2022-09-04] MEDS: Cefepime 2 GM in Sodium Chloride 0.9% 50 ML IV SCH ×2 (10:13→20:58)
[2022-09-04] MEDS: Pantoprazole 40 MG Tab.CR PO SCH (10:33)
[2022-09-04 12:19] LABS: PERCENT FE SATURATION 20.47 % (20-55)
[2022-09-04] MEDS: Brimonidine 0.2% Ophth Soln 5 ML Bottle EYERT SCH ×3 (12:53→21:11)
[2022-09-04 12:54] LABS: BASE EXCESS ARTERIAL 19.4 (-2.0-3.0); BICARBONATE,ARTERIAL 48 mEq/L (22-26); PCO2 ARTERIAL 89 mmHG (35-45); PO2 ARTERIAL 85 mmHG (80-105)
[2022-09-04 17:21] LABS: BASE EXCESS ARTERIAL 18.9 (-2.0-3.0); BICARBONATE,ARTERIAL 48 mEq/L (22-26); PCO2 ARTERIAL 85 mmHG (35-45); PO2 ARTERIAL 69 mmHG (80-105)
[2022-09-04] MEDS ORDERED: Cefepime 2 GM Vial ONE (20:47)
[2022-09-05] MEDS: Sodium Chloride 0.9% 1,000 ML IV SCH (05:52)
[2022-09-05 06:26] LABS: HEMOGLOBIN 9.5 g/dL (12.0-16.0); MEAN CORPUSCULAR HEMOGLOBIN 24.1 pg (27.0-32.0); MEAN CORPUSCULAR HGB CONC 27.1 g/dL (31.0-37.0); MEAN CORPUSCULAR VOLUME 88.8 fL (80.0-98.0); MEAN PLATELET VOLUME 9.3 fL (7.40-12.00); RED BLOOD CELL COUNT 3.94 M/uL (4.30-5.90); WHITE BLOOD CELL COUNT,WBC 4.92 K/uL (4.0-11.0)
[2022-09-05] MEDS: Pantoprazole 40 MG Tab.CR PO SCH (06:42)
[2022-09-05 06:43] LABS: CALCIUM 8.1 mg/dL (8.5-10.1); CARBON DIOXIDE,CO2 43.8 mmol/L (21.0-32.0); CREATININE 0.7 mg/dL (0.6-1.0); EST CRCL DRUG DOSING (CG) 45.32 mL/min; MAGNESIUM 2.1 mg/dL (1.8-2.4); PHOSPHORUS 2.8 mg/dL (2.6-4.7); POTASSIUM,K 3.9 mmol/L (3.5-5.1)
[2022-09-05] MEDS: Cefepime 2 GM in Sodium Chloride 0.9% 50 ML IV SCH (09:06)
[2022-09-05] MEDS: Brimonidine 0.2% Ophth Soln 5 ML Bottle EYERT SCH ×2 (10:20→21:32)
[2022-09-05] MEDS: acetaZOLAMIDE 250 MG Tab PO SCH ×2 (10:20→21:28)
[2022-09-05] MEDS: Bumetanide 1 MG Tab PO SCH (10:20)
[2022-09-05] MEDS: Loratadine 10 MG Tab PO SCH (10:20)
[2022-09-05] MEDS: Enoxaparin 40 MG/0.4 ML Syringe SUBCUT SCH (10:20)
[2022-09-05] MEDS ORDERED: Furosemide 40 MG/4 ML VIAL IVPUSH ONE (13:13)
[2022-09-05] MEDS: Acetaminophen 325 MG Tab PO PRN ×2 (13:14→21:28)
[2022-09-05] MEDS: fluvoxaMINE 50 MG Tab PO SCH (21:32)
[2022-09-06 05:57] LABS: HEMATOCRIT 33.9 % (36.0-46.0); HEMOGLOBIN 9.1 g/dL (12.0-16.0); MEAN CORPUSCULAR HGB CONC 26.8 g/dL (31.0-37.0); MEAN CORPUSCULAR VOLUME 89.4 fL (80.0-98.0); MEAN PLATELET VOLUME 9.5 fL (7.40-12.00); RED BLOOD CELL COUNT 3.79 M/uL (4.30-5.90); WHITE BLOOD CELL COUNT,WBC 3.83 K/uL (4.0-11.0)
[2022-09-06 06:22] LABS: CALCIUM 8.4 mg/dL (8.5-10.1); CARBON DIOXIDE,CO2 42.9 mmol/L (21.0-32.0); CREATININE 0.7 mg/dL (0.6-1.0); EST CRCL DRUG DOSING (CG) 45.32 mL/min; POTASSIUM,K 3.6 mmol/L (3.5-5.1)
[2022-09-06] MEDS: Pantoprazole 40 MG Tab.CR PO SCH (06:59)
[2022-09-06] MEDS: Bumetanide 1 MG Tab PO SCH (09:55)
[2022-09-06] MEDS: acetaZOLAMIDE 250 MG Tab PO SCH ×2 (09:55→22:03)
[2022-09-06] MEDS: Loratadine 10 MG Tab PO SCH (09:55)
[2022-09-06] MEDS: Brimonidine 0.2% Ophth Soln 5 ML Bottle EYERT SCH ×2 (09:55→22:03)
[2022-09-06] MEDS: Enoxaparin 40 MG/0.4 ML Syringe SUBCUT SCH (09:55)
[2022-09-06] MEDS: fluvoxaMINE 50 MG Tab PO SCH (22:03)
[2022-09-07] MEDS: Pantoprazole 40 MG Tab.CR PO SCH (09:03)
[2022-09-07] MEDS: Brimonidine 0.2% Ophth Soln 5 ML Bottle EYERT SCH (09:03)
[2022-09-07] MEDS: Bumetanide 1 MG Tab PO SCH (09:04)
[2022-09-07] MEDS: Loratadine 10 MG Tab PO SCH (09:04)
[2022-09-07] MEDS: acetaZOLAMIDE 250 MG Tab PO SCH (09:04)
[2022-09-07] MEDS: Enoxaparin 40 MG/0.4 ML Syringe SUBCUT SCH (09:04)
[2022-09-07] MEDS ORDERED: LORazepam 2 MG/ML SDV IVPUSH PRN (10:54)
[2022-09-07] MEDS: Morphine 2 MG/ML SYRINGE IVPUSH PRN ×2 (13:42→17:42)
[2022-09-08] MEDS: Morphine 2 MG/ML SYRINGE IVPUSH PRN ×2 (05:54→08:39)
[2022-09-08 07:50] VITALS: PULSE 79
[2022-09-08 09:18] VITALS: BP 147/65
== END 2022-09-08 09:15 | disposition hospice, home (50) | DRG 389 ==
LOC: MW.ED 18:23 → OBSVTOIN 22:36 → INTOOBSV 22:36 → MW.MS 22:36 → OBSVTOIN 09-05 15:13 → MW.MS 09-05 15:14
PROVIDERS: ADMIT Internal Medicine; ATTEND Internal Medicine
DX: K56.600 Partial intestinal obstruction, unspecified as to cause (principal); R53.1 Weakness; J44.9 Chronic obstructive pulmonary disease, unspecified; E87.3 Alkalosis; I42.9 Cardiomyopathy, unspecified; J90 Pleural effusion, not elsewhere classified; Z99.81 Dependence on supplemental oxygen; F42.9 Obsessive-compulsive disorder, unspecified; Z51.5 Encounter for palliative care; H40.9 Unspecified glaucoma; G89.29 Other chronic pain; M45.9 Ankylosing spondylitis of unspecified sites in spine; I10 Essential (primary) hypertension; J43.9 Emphysema, unspecified; K21.9 Gastro-esophageal reflux disease without esophagitis; E78.00 Pure hypercholesterolemia, unspecified; K52.9 Noninfective gastroenteritis and colitis, unspecified; K44.9 Diaphragmatic hernia without obstruction or gangrene; K40.90 Unilateral inguinal hernia, without obstruction or gangrene, not specified as recurrent; M19.90 Unspecified osteoarthritis, unspecified site; M54.9 Dorsalgia, unspecified; F41.9 Anxiety disorder, unspecified; F32.A Depression, unspecified; M81.0 Age-related osteoporosis without current pathological fracture; Z98.890 Other specified postprocedural states; Z90.710 Acquired absence of both cervix and uterus; Z88.5 Allergy status to narcotic agent; Z88.8 Allergy status to other drugs, medicaments and biological substances; Z91.041 Radiographic dye allergy status; Z79.82 Long term (current) use of aspirin; Z79.899 Other long term (current) drug therapy; Z86.010 Personal history of colon polyps
CPT/HCPCS: 36415 ×3; 36600 ×2; 71045 ×2; 74018; 74177; 80048 ×2; 80053; 82803 ×3; 83550; 83605; 83690; 83735 ×3; 84100 ×2; 84484; 85025; 85027 ×2; 87040; 93005; 94640; 96374; 99285; A9270 ×6; J0692 ×4; J1940; J2405; J3490 ×5; J7030 ×3; Q9967; 93010; 99283; J2270; J7620-GY